=== PATIENT | male | born 1980 | race Two or more races ===

== ENCOUNTER 2021-05-27 23:16 | Emergency (ER) | payer OTHER, SELFPAY ==
--- NOTE | ~2021-05-27 | XR_ITS ---
EXAMINATION: XR LEFT HAND: 3 VIEWS CLINICAL INFORMATION: Laceration. Question of fracture. COMPARISON: None TECHNIQUE: PA, oblique and lateral views XR/XR hand wrist LT FINDINGS/IMPRESSION: Partial amputation of the soft tissues distal to the third distal phalangeal tuft. No fractures. No dislocation. No radiopaque foreign body.
[2021-05-27 23:22] VITALS: BP 148/102; PULSE 87; RESP 15; TEMP 36.7; O2SAT 97; BMI 36.0
--- NOTE | 2021-05-28 00:59 | ED_ITS ---
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 Patient states paper was was like cardboard like material. Patient states feels numb but have complete range of motion of finger. Patient denies any squirting bleeding once laceration occurred. Denies any other trauma. Patient unaware on last received Tdap Related Data Previous Rx's Medication Instructions Recorded cephalexin 500 mg capsule 500 mg PO QID #28 cap 05/28/21 naproxen 500 mg tablet 500 mg PO BID PRN #20 tab 05/28/21 Allergies Allergy/AdvReac Type Severity Reaction Status Date / Time No Known Allergies Allergy Unverified 05/01/20 16:46 [facility] Past Medical History Medical History (Updated 05/28/21 @ 01:44 by DENI Alexander) Diabetes Social History Social History Advance Directives: No Physical Exam Vital Signs: Vital Signs: Last Vital Signs Temp 98.0 F 05/27/21 23:22 Pulse 87 05/27/21 23:22 Resp 15 05/27/21 23:22 BP 148/102 H 05/27/21 23:22 Pulse Ox 97 05/27/21 23:22 Body Mass Index 36.0 Const: General: cooperative, healthy appearing, comfortable, no acute distress, well developed, alert, awake and Physically active Orie ntation/consciousness: patient oriented x3 HENMT: Head: Yes normal to inspection, Yes No palpable skull fracture present, Yes normocephalic and Yes atraumatic Eyes: General: appearance normal, both eyes and all related structures Neck: Neck: Yes normal visual inspection, Yes full ROM, Yes no lymphadenopathy, Yes no meningeal signs, Yes trachea midline, Yes supple and No tender Chest: Chest palpation & inspection: normal inspection of the chest and normal palpation of entire chest wall Resp: Effort & Inspection: normal respiratory effort and able to speak in complete sentences Auscultation: clear to auscultation bilaterally Cardio: Jugular venous distension: no JVD Heart sounds: S1 normal heart sound present and S2 normal heart sound present GI: Inspection: Yes normal to inspection and No abdominal wall ecchymosis Palpation (GI): Soft to palpation, not firm, nontender, no guarding and not rigid : General: No CVA tenderness and Yes no CVA tenderness Back/Spine/Pelvis: Back: no CVA tenderness, No CVA tenderness and No back tenderness Skin: General skin exam: no rashes or lesions noted and elasticity normal Neuro: General: patient oriented x3, gait normal, no meningeal signs and CN's II-XI intact bilaterally Cranial nerves: Yes CN's II-XII intact bilaterally Extrem: General: Yes normal to inspection and Yes full ROM Hand/finger images: 1. Very superficial laceration. Negative for active bleeding. Capillary refill is intact. Patient has complete range of motion of finger. The hand negative for signs of trauma. Vascular, neuro, motor exam intact. Psych: Appearance: grossly normal, well kempt and not disheveled Course Course Course Narrative: Laceration repair, x-ray, and Tdap Reevaluation(s) Reevaluation #1: Wound was cleaned with sterile saline and Betadine iodine. Wound was repaired with skin adhesive Dermabond. X-ray negative for fracture. Due to history of diabetes patient will be discharged with antibiotics to prevent infection Time: 02:10 MDM - Wound/Laceration MDM Narrative Medical decision making narrative: Finger laceration Discharge Plan Discharge Clinical Impression: Laceration Patient Disposition: Home, Self-Care Instructions: Laceration (ED), Skin Adhesive Care (ED) Additional Instructions: X-ray came back negative for fracture. Due to dirty cut you will be discharged with antibiotics to prevent infection return to the ED for any redness, pus discharge, foul odor, fever, chills, swelling, inability to move, or any other concerning symptoms. Please follow-up primary care provider Prescriptions: New cephalexin 500 mg capsule 500 mg PO QID Qty: 28 RF: 0 naproxen 500 mg tablet 500 mg PO BID PRN (Reason: pain) Qty: 20 RF: 0 Referrals: [facility] [Provider Group] - 2 days (Left middle finger laceration at work) Stand Alone Forms: Work/School Release Discharge Date/Time: 05/28/21 01:58 Print Language: Malagasy
[2021-05-28] MEDS: Ibuprofen 800 MG TABLET PO (01:03)
[2021-05-28] MEDS: Diphth,Pertus(ACell),Tet Adult 0.5 ML SYRINGE IM (01:04)
== END 2021-05-28 01:58 | disposition home or self-care (01) ==
PROVIDERS: Emergency Provider Emergency Medicine; PCP Internal Medicine
DX: S61.213A Laceration without foreign body of left middle finger without damage to nail, initial encounter (principal); E11.9 Type 2 diabetes mellitus without complications; W31.89XA Contact with other specified machinery, initial encounter; Y93.9 Activity, unspecified; Y92.89 Other specified places as the place of occurrence of the external cause; Y99.0 Civilian activity done for income or pay
CPT/HCPCS: 12001; 73110; 73130; 90471; 90715; 99283; 99284

== ENCOUNTER → 2021-05-28 11:07 | Outpatient (BNVA) | payer OTHER, SELFPAY | PROVIDERS: PCP Internal Medicine; Visit Provider Internal Medicine | DX: S61.213A Laceration without foreign body of left middle finger without damage to nail, initial encounter (principal); W31.9XXA Contact with unspecified machinery, initial encounter | CPT/HCPCS: 99203 ==

== ENCOUNTER → 2021-06-01 12:47 | Outpatient (BNVA) | payer OTHER, SELFPAY | PROVIDERS: PCP Internal Medicine; Visit Provider Internal Medicine | DX: S61.213A Laceration without foreign body of left middle finger without damage to nail, initial encounter (principal); S64.493A Injury of digital nerve of left middle finger, initial encounter; W45.8XXA Other foreign body or object entering through skin, initial encounter | CPT/HCPCS: 99213 ==

== ENCOUNTER → 2021-06-05 10:41 | Outpatient (BNVA) | payer OTHER, SELFPAY | PROVIDERS: PCP Internal Medicine; Visit Provider Internal Medicine | DX: S61.213A Laceration without foreign body of left middle finger without damage to nail, initial encounter (principal); X58.XXXA Exposure to other specified factors, initial encounter; S64.493A Injury of digital nerve of left middle finger, initial encounter | CPT/HCPCS: 99213 ==

== ENCOUNTER 2022-05-15 10:37 | Emergency (ER) | payer OTHER, SELFPAY ==
[2022-05-15 10:42] VITALS: BP 164/88; PULSE 83; RESP 18; TEMP 36.6; O2SAT 99; BMI 36.8
--- OUTSIDE RECORDS SUMMARY | 2022-05-15 11:38 | XMS_ITS | Continuity of Care Document ---
:1980 Author Organization [facility] Adult Address [address] [place] [address]- Care Team Providers Name Role Phone Tavo Mackey MD Primary Care Physician [place] [facility] [place]/21 - 11/25/21 [facility] Adult [address] [place] [address]- Allergies, Adverse Reactions, Alerts No Known Allergies Immunizations Given and Recorded Vaccine Date Status Refusal Reason SARS-CoV-2 (COVID-19) mRNA-1273 vaccine 07/14/21 Recorded SARS-CoV-2 (COVID-19) mRNA-1273 vaccine 05/11/21 Recorded tetanus/diphtheria/pertussis, acel(Tdap) 05/28/21 Recorde d influenza virus vaccine, inactivated 05/11/21 Recorded influenza virus vaccine, inactivated 06/23/17 Given influenza virus vaccine, inactivated 06/03/16 Given influenza virus vaccine, inactivated 05/23/15 Given influenza virus vaccine, inactivated 06/11/14 Given influenza virus vaccine, inactivated 11/02/13 Given Tet/Diphth/Acel, Pertussis (oldterm) 12/15/11 Given Pneumococcal Vacc (oldterm) 12/15/11 Given Medications Aspirin Tablet 81 mg, By Mouth, Daily, Refills 0, Maintenance, 11/14/20 21:08:00 EDT, Partial fill upon patient request if the prescription is for a schedule II opioid drug. Start Date: 11/14/20 Status: Orderedatorvastatin 40 mg oral tablet 1 tablet, By Mouth, Daily, # 90 tablet, 1 Refills, Maintenance, 08/18/21 9:40:00 EST, [facility] #[id number], 170, cm, 08/18/21 9:25:00 EST, Height, 104, kg, 06/17/21 8:07:00 EDT, Dry Weight Start Date: 08/18/21 Status: OrderedFreestyle 2 Kay 14 sensor Freestyle 2 Kay 14 sensor, See Instructions, # 2 each, Refills 11, Tot. Refills 11, Maintenance, DM2 E11.9 change every 14 days, 1 hour warm up, 08/18/21 9:39:00 EST, Compound, 170, cm, 08/18/21 9:25:00 EST, Height, 104, kg, 06/17/21 8:07:00 EDT, D... Start Date: 08/18/21 Status: OrderedFreestyle kay 2 reader Freestyle kay 2 reader, See Instructions, # 1 each, Refills 11, Tot. Refills 11, Maintenance, DM2 E11.9, 05/26/21 9:10:00 EDT, Compound, 170, cm, 05/18/21 9:13:00 EDT, Height, 104.5, kg, 11/14/20 21:03:00 EDT, Dry Weight Start Date: 05/26/21 Status: OrderedLantus Solostar Pen 100 units/mL subcutaneous solution = 100 units, Subcutaneous Injection, Daily, # 90 mL, 11 Refills, Soft Stop, 11/17/21 9:18:00 EDT, [facility], 170, cm, 11/17/21 8:51:00 EDT, Height, 104, kg, 06/17/21 8:07:00 EDT, Dry Weight Start Date: 11/17/21 Status: Orderedlisinopril 10 mg oral tablet 1, tablet, By Mouth, Daily, # 90 tablet, Refills 1, Tot. Refills 1, Maintenance, 08/18/21 9:40:00 EST, Route to Pharmacy Electronically, [facility] #[id number], 170, cm, 08/18/21 9:25:00 EST, Height, 104, kg, 06/17/21 8:07:00 EDT, Dry Weight Start Date: 08/18/21 Status: OrderedPen [place], 31 G x 8 mm BD Ultra Fine III See Instructions, # 4 Unknown, Refills 6, Tot. Refills 6, Maintenance, DM2, 09/30/21 11:27:00 EST, Supply, 170, cm, 08/18/21 9:25:00 EST, Height, 104, kg, 06/17/21 8:07:00 EDT, Dry Weight Start Date: 09/30/21 Status: OrderedSemglee (Prefilled Pen) 100 units/mL subcutaneous solution = 100 units, Subcutaneous Infusion, Daily, # 15 mL, 3 Refills, Maintenance, 11/20/21 14:34:00 EDT, [facility], Partial fill upon patient request if the prescription is for a scheduleII opioid drug., 170, cm, 11/17/21 8:51:00 EDT, H... Start Date: 11/20/21 Stop Date: 11/15/22 Status: Ordered Problem List Condition Effective Dates Status Health Status Informant Anger(Confirmed) Active Obesity (BMI 35.0-39.9 without Active comorbidity)(Confirmed) CKD (chronic kidney disease) stage 1, Active GFR 90 ml/min or greater(Confirmed) Pilonidal cyst(Confirmed) Active Current use of insulin(Confirmed) Active Hypercholesterolemia(Confirmed) Active Obese class II(Confirmed) Active Tobacco abuse(Confirmed) Active Type 2 diabetes with stage 1 chronic Active kidney disease GFR>90(Confirmed) Social History Social History Type Response Smoking Status Former smoker, quit more madiha n 30 days ago entered on: 06/09/21 Sex
--- OUTSIDE RECORDS SUMMARY | 2022-05-15 11:38 | XMS_ITS | Continuity of Care Document ---
:1980 Author Organization [facility] Adult Address [address] [place] [address]- Care Team Providers Name Role Phone Tavo Mackey MD Primary Care Physician [place] [facility] [place] [facility] [address] [place], [place] [address] Allergies, Adverse Reactions, Alerts Substance Reaction Severity Status NKA Active Immunizations Given and Recorded Vaccine Date Status Refusal Reason tetanus/diphtheria/pertussis, acel(Tdap) 05/28/21 Recorde d influenza virus vaccine, inactivated 05/11/21 Recorded influenza virus vaccine, inactivated 06/23/17 Given influenza virus vaccine, inactivated 06/03/16 Given influenza virus vaccine, inactivated 05/23/15 Given influenza virus vaccine, inactivated 06/11/14 Given influenza virus vaccine, inactivated 11/02/13 Given SARS-CoV-2 (COVID-19) mRNA-1273 vaccine 05/11/21 Recorded Tet/Diphth/Acel, Pertussis (oldterm) 12/15/11 Given Pneumococcal Vacc (oldterm) 12/15/11 Given Medications Amoxicillin 125, By Mouth, Every 12 hours, Maintenance, Pt states will start today after surgery, 06/17/21 8:44:00 EDT Start Date: 06/17/21 Status: OrderedAspirin Tablet 81 mg, By Mouth, Daily, Refills 0, Maintenance, 11/14/20 21:08:00 EDT, Partial fill upon patient request if the prescription is for a schedule II opioid drug. Start Date: 11/14/20 Status: Orderedatorvastatin 40 mg oral tablet 1 tablet, By Mouth, Daily, # 90 tablet, 0 Refills, Maintenance, 05/11/21 12:02:00 EDT, [facility], 170, cm, 01/26/21 8:52:00 EDT, Height, 104.5, kg, 11/14/20 21:03:00 EDT, Dry Weight Start Date: 05/11/21 Status: OrderedBactrim SS Tablet 1, tablet, By Mouth, 2 times a day, Maintenance, Pt states will start today . drink plenty of fluids, 06/17/21 8:47:00 EDT Start Date: 06/17/21 Status: OrderedFreestyle Kay 14 sensor Freestyle Kay 14 sensor, See Instructions, # 2 each, Refills 11, Tot. Refills 11, Maintenance, DM2E11.9 change every 14 days, 1 hour warm up, 11/24/20 7:52:00 EDT, Compound, 170, cm, 11/14/20 21:03:00 EDT, Height, 104.5, kg, 11/14/20 21:03:00 EDT,... Start Date: 11/24/20 Status: OrderedFreestyle kay 2 reader Freestyle kay 2 reader, See Instructions, # 1 each, Refills 11, Tot. Refills 11, Maintenance, DM2 E11.9, 05/26/21 9:10:00 EDT, Compound, 170, cm, 05/18/21 9:13:00 EDT, Height, 104.5, kg, 11/14/20 21:03:00 EDT, Dry Weight Start Date: 05/26/21 Status: OrderedLantus Solostar Pen 100 units/mL subcutaneous solution = 100 units, Subcutaneous Injection, Daily, # 90 mL, 11 Refills, Soft Stop, 05/18/21 9:33:00 EDT, [facility], 170, cm, 05/18/21 9:13:00 EDT, Height, 104.5, kg, 11/14/20 21:03:00 EDT,Dry Weight Start Date: 05/18/21 Status: Orderedlisinopril 10 mg oral tablet 1, tablet, By Mouth, Daily, # 90 tablet, Refills 0, Tot. Refills 0, Maintenance, 05/11/21 12:02:00 EDT, Route to Pharmacy Electronically, [facility], 170, cm, 01/26/21 8:52:00 EDT, Height, 104.5, kg, 11/14/20 21:03:00 EDT, Dry Weight Start Date: 05/11/21 Status: OrderedoxyCODONE 5 mg oral tablet 5 mg, 1, tablet, By Mouth, Every 4 hours, PRN, Refills 0, Tot. Refills 0, Maintenance, for pain, 06/17/21 10:01:00 EDT, Partial fill upon patient request if the prescription is for a schedule II opioiddrug. Start Date: 06/17/21 Status: OrderedPen [place], 31 G x 8 mm BD Ultra Fine III See Instructions, # 4 Unknown, Refills 5, Tot. Refills 5, Maintenance, DM2, 04/16/20 16:10:00 EDT, Supply, 168, cm, 03/21/20 7:01:00 EDT, Height, 104.8, kg, 03/18/20 22:56:00 EDT, Dry Weight Start Date: 04/16/20 Status: Ordered Problem List Condition Effective Dates Status Health Status Informant Anger(Confirmed) Active CKD (chronic kidney disease) stage 1, Active [...]
--- OUTSIDE RECORDS SUMMARY | 2022-05-15 11:38 | XMS_ITS | Continuity of Care Document ---
:1980 Author Organization [facility] Adult Address [address] [place] [address]- Care Team Providers Name Role Phone Tavo Mackey MD Primary Care Physician [place] [facility] [place] 06[place]21 [facility] [address] [place] [address]- Allergies, Adverse Reactions, Alerts Substance Reaction Severity Status NKA Active Immunizations Given and Recorded Vaccine Date Status Refusal Reason influenza virus vaccine, inactivated 06/23/17 Given influenza [...] EDT, Dry Weight Start Date: 05/11/21 Status: OrderedFreestyle Kay 14 sensor Freestyle Kay [...] Refills, Soft Stop, 05/18/21 9:33:00 EDT, [facility], 170, cm, 05/18/21 9:13:00 EDT, Height, 104.5, kg, 11/14/20 21:03:00 EDT,Dry Weight Start Date: 05/18/21 Status: Orderedlisinopril 10 mg oral tablet 1, tablet, By Mouth, Daily, # 90 tablet, Refills 0, Tot. Refills 0, Maintenance, 05/11/21 12:02:00 EDT, Route to Pharmacy Electronically, [facility], 170, cm, 01/26/21 8:52:00 EDT, Height, 104.5, kg, 11/14/20 21:03:00 EDT, Dry Weight Start Date: 05/11/21 Status: OrderedoxyCODONE 5 mg oral tablet 5 mg, 1, tablet, By Mouth, Every 4 hours, PRN, Take with food. May cause constipation., Refills 0, Tot. Refills 0, Maintenance, as needed for pain, 06/08/21 9:22:00 EDT, Partial fill upon patient request if the prescription is for a schedule II opioid... Start Date: 06/08/21 Status: OrderedPen [place], 31 G x 8 mm BD Ultra [...] Current use of insulin(Confirmed) Active Hypercholesterolemia(Confirmed) Active Tobacco abuse(Confirmed) Active Type 2 diabetes with stage 1 chronic Active kidney disease GFR>90(Confirmed) Social History Social History Type Response Smoking Status Former smoker, quit more madiha n 30 days ago entered on: 06/09/21 Sex
--- OUTSIDE RECORDS SUMMARY | 2022-05-15 11:38 | XMS_ITS | Continuity of Care Document ---
:1980 Author Organization [facility] Adult Address [address] [place] [address]- Care Team Providers Name Role Phone Tavo Mackey MD Primary Care Phys[place] [facility] [place]20 [facility] [address] [place] [address] [facility] Allergies, Adverse Reactions, Alerts Substance Reaction Severity Status NKA Active Immunizations Given and Recorded Vaccine Date Status Refusal Reason influenza virus vaccine, inactivated 06/23/17 Given influenza virus vaccine, inactivated 06/03/16 Given influenza virus vaccine, inactivated 05/23/15 Given influenza virus vaccine, inactivated 06/11/14 Given influenza virus vaccine, inactivated 11/02/13 Given Tet/Diphth/Acel, Pertussis (oldterm) 12/15/11 Given Pneumococcal Vacc (oldterm) 12/15/11 Given Medications atorvastatin 40 mg oral tablet 1 tablet, By Mouth, Daily, # 30 tablet, 12 Refills, Maintenance, 03/21/20 7:17:00 EDT, [facility] #[id number], 168, cm, 03/21/20 7:01:00 EDT, Height, 104.8, kg, 03/18/20 22:56:00 EDT, Dry Weight Start Date: 03/21/20 Status: OrderedBydureon Pen 2 mg subcutaneous injection, extended release See Instructions, Subcutaneous Infusion, administer once a week for DM2 E11.9, # 4 each, 11 Refills,Maintenance, 04/16/20 16:09:00 EDT, [facility] #[id number], 168, cm, 03/21/20 7:01:00 EDT, Height, 104.8, kg, 03/18/20 22:56:00 EDT, Dry Weight Start Date: 04/16/20 Status: OrderedLantus Solostar Pen 100 units/mL subcutaneous solution See Instructions, # 90 mL, Refills 3 Tot. Refills 3, INJECT 85 UNITS UNDER THE SKIN DAILY, [facility] Start Date: 05/28/19 Status: Orderedlisinopril 10 mg oral tablet 1, tablet, By Mouth, Daily, # 90 tablet, Refills 4, Tot. Refills 4, Maintenance, 03/21/20 7:17:00 EDT, Route to Pharmacy Electronically, [facility] #[id number], 168, cm, 03/21/20 7:01:00 EDT, Height, 104.8, kg, 03/18/20 22:56:00 EDT, Dry Weight Start Date: 03/21/20 Status: OrderedPen [place], 31 G x 8 mm BD Ultra [...] GFR>90(Confirmed) Social History Social History Type Response Tobacco Use: 4 or less cigarettes(le ss than 1/4 pack)/day in last 30 days. Sex
--- OUTSIDE RECORDS SUMMARY | 2022-05-15 11:38 | XMS_ITS | Continuity of Care Document ---
:[address] [facility] Adult Address [address] [place] [address]- Care Team Providers Name Role Phone Tavo Mackey MD Primary Care Physician [place] [facility]/20/20 - 12/20/20 [facility] [address] [place], [place] [address] Allergies, Adverse Reactions, Alerts Substance [...] tablet, 12 Refills, Maintenance, 03/21/20 7:17:00 EDT, [facility] #[id number], 168, cm, 03/21/20 7:01:00 EDT, Height, 104.8, kg, 03/18/20 22:56:00 EDT, Dry Weight Start Date: 03/21/20 Status: OrderedBydureon Pen 2 mg subcutaneous injection, extended release See Instructions, Subcutaneous Infusion, administer once a week for DM2 E11.9, # 4 each, 11 Refills,Maintenance, 04/16/20 16:09:00 EDT, [facility] #[id number], 168, cm, 03/21/20 7:01:00 EDT, Height, 104.8, kg, 03/18/20 22:56:00 EDT, Dry Weight Start Date: 04/16/20 Status: OrderedFree Style 14 day reader Free Style 14 day reader, See Instructions, # 1 each, Refills 0, Tot. Refills 0, Maintenance, DM2 E11.9, 11/24/20 7:52:00 EDT, Compound, 170, cm, 11/14/20 21:03:00 EDT, Height, 104.5, kg, 11/14/20 21:03:00 EDT, Dry Weight Start Date: 11/24/20 Status: OrderedFreestyle Kay 14 sensor Freestyle Kay 14 sensor, See Instructions, # 2 each, Refills 11, Tot. Refills 11, Maintenance, DM2E11.9 change every 14 days, 1 hour warm up, 11/24/20 7:52:00 EDT, Compound, 170, cm, 11/14/20 21:03:00 EDT, Height, 104.5, kg, 11/14/20 21:03:00 EDT,... Start Date: 11/24/20 Status: OrderedLantus Solostar Pen 100 units/mL subcutaneous solution = 100 units, Subcutaneous Injection, Daily, # 12 mL, 11 Refills, Soft Stop, 12/16/20 8:15:00 EDT Start Date: 12/16/20 Status: Orderedlisinopril 10 mg oral tablet 1, tablet, By Mouth, Daily, # 90 tablet, Refills 4, Tot. Refills 4, Maintenance, 03/21/20 7:17:00 EDT, Route to Pharmacy Electronically, [facility] #[id number], 168, cm, 03/21/20 7:01:00 EDT, Height, 104.8, kg, 03/18/20 22:56:00 EDT, Dry Weight Start Date: 03/21/20 Status: OrderedPen [place], 31 G x 8 mm BD Ultra [...]
--- OUTSIDE RECORDS SUMMARY | 2022-05-15 11:38 | XMS_ITS | Continuity of Care Document ---
:1980 Author Organization [facility] Adult Address [address] [place] [address]- Care Team Providers Name Role Phone Tavo Mackey MD Primary Care Physician [place] [facility] [place]16[place]20 - 05/16/20 [facility] [address] [place] [id number] [facility] Allergies, Adverse Reactions, Alerts Substance Reaction Severity [...] tablet, 12 Refills, Maintenance, 03/21/20 7:17:00 EDT, [facility] #[id number], 168, cm, 03/21/20 7:01:00 EDT, Height, 104.8, kg, 03/18/20 22:56:00 EDT, Dry Weight Start Date: 03/21/20 Status: OrderedBydureon Pen 2 mg subcutaneous injection, extended release See Instructions, Subcutaneous Infusion, administer once a week for DM2 E11.9, # 4 each, 11 Refills,Maintenance, 04/16/20 16:09:00 EDT, [facility] #[id number], 168, cm, 03/21/20 7:01:00 EDT, Height, 104.8, [...] 03/21/20 7:17:00 EDT, Route to Pharmacy Electronically, [facility] #[id number], 168, cm, 03/21/20 7:01:00 EDT, Height, 104.8, kg, 03/18/20 22:56:00 EDT, Dry Weight Start Date: 03/21/20 Status: OrderedPen [place], 31 G x 8 [...]
--- OUTSIDE RECORDS SUMMARY | 2022-05-15 11:38 | XMS_ITS | Continuity of Care Document ---
:1980 Author Organization [facility] [place], [facility] Adult Address [address] [place] [address]- Care Team Providers Name Role Phone Tavo Mackey MD Primary Care Physician Encounter [facility] [place] Date(s): 11/22/19 - 11/29/19 [facility] [place] Adult [address] [place] [address]- [facility] Encounter Diagnosis Cough (Discharge Diagnosis) - 11/22/19 Attending Physician: Not on Staff, Attending MD Allergies, Adverse Reactions, Alerts Substance Reaction Severity Status NKA Active Immunizations Given and Recorded Vaccine Date Status Refusal Reason influenza virus vaccine, inactivated 06/23/17 Given influenza virus vaccine, inactivated 06/03/16 Given influenza virus vaccine, inactivated 05/23/15 Given influenza virus vaccine, inactivated 06/11/14 Given influenza virus vaccine, inactivated 11/02/13 Given Tet/Diphth/Acel, Pertussis (oldterm) 12/15/11 Given Pneumococcal Vacc (oldterm) 12/15/11 Given Medications Accu-Chek Compact Lancets See Instructions, # 200 each, Refills 11, Tot. Refills 11, Maintenance, dm2 E11.9 check blood sugar 4 times a day, 12/08/18 14:06:15 EDT, Compound Start Date: 12/08/18 Status: OrderedACCU-CHEK Smartview Test Strips See Instructions, # 200 each, Refills 11, Tot. Refills 11, Maintenance, dm2 E11.9 check blood sugar 4 times a day, 12/08/18 14:04:34 EDT, Compound Start Date: 12/08/18 Status: Orderedaspirin 81 mg oral tablet 1 tablet = 81 mg, By Mouth, Daily, # 30 tablet, 0 Refills, Maintenance, 01/21/14 15:06:30, Tablet Start Date: 01/21/14 Status: Orderedatorvastatin 40 mg oral tablet 1 tablet, By Mouth, Daily, # 30 tablet, 12 Refills, Maintenance, 09/26/19 13:25:00 EST, [facility], 170.18, cm, 08/06/19 10:01:00 EST, Height, 106, kg, 04/25/19 16:53:00 EDT, Dry Weight Start Date: 09/26/19 Status: OrderedColace Clear = 100 mg, By Mouth, 2 times a day, # 60 capsule, 6 Refills, Maintenance, 05/08/19 14:43:25 EDT Start Date: 05/08/19 Status: OrderedDM DM, See Instructions, # 1 each, Refills 0, Tot. Refills 0, Maintenance, Test blood sugar four times daily for IDDM E11.9, 10/08/16 12:28:38, Compound Start Date: 10/08/16 Status: OrderedFree Style 14 day reader Free Style 14 day reader, See Instructions, # 1 each, Refills 0, Tot. Refills 0, Maintenance, DM2 E11.9, 11/15/18 9:20:56 EDT, Compound Start Date: 11/15/18 Status: OrderedFreestyle Kay 14 sensor Freestyle Kay 14 sensor, See Instructions, # 2 each, Refills 12, Tot. Refills 12, Maintenance, DM2E11.9 change every 14 days, 1 hour warm up, 11/15/18 9:20:53 EDT, Compound Start Date: 11/15/18 Status: OrderedHumalog 100 u/ml subcutaneous injection See Instructions, To be used daily with VGO 40 70 units max daily dose, # 3 vials, 11 Refills, Maintenance, 11/15/18 9:19:15 EDT Start Date: 11/15/18 Status: OrderedLantus Solostar Pen 100 units/mL subcutaneous solution See Instructions, # 90 mL, Refills 3 Tot. Refills 3, INJECT 85 UNITS UNDER THE SKIN DAILY, [facility] Start Date: 05/28/19 Status: Orderedlisinopril 10 mg oral tablet 1, tablet, By Mouth, Daily, # 90 tablet, Refills 4, Tot. Refills 0, Maintenance, 09/26/19 13:25:00 EST, Route to Pharmacy Electronically, [facility], 170.18, cm, 08/06/19 10:01:00 EST, Height, 106, kg, 04/25/19 16:53:00 EDT, Dry Weight Start Date: 09/26/19 Status: OrderedNuLYTELY with Flavor Packs oral powder for reconstitution 240 mL, By Mouth, Every 10 minutes, # 1 each, 0 Refills, Maintenance, 05/09/19 11:42:00 EDT, REC Powder, 240 mL By Mouth Every 10 minutes Start Date: 05/09/19 Status: OrderedOne Touch Fine Point Lancets See Instructions, # 200 each, Refills 5, Tot. Refills 5, Maintenance, use as directed for Type 1 Diabetes Mellitus, 01/05/18 13:12:14 EDT, Compound Start Date: 01/05/18 Stop Date: 07/04/18 Status: OrderedOne Touch Ultra 2 Glucose Meter See Instructions, # 1 each, Refills 0, Tot. Refills 0, Maintenance, TEST Blood sugar 3-4 times a dayDX E11.9 IDDMII, 11/21/18 11:29:15 EDT, Compound Start Date: 11/21/18 Status: OrderedOne Touch Ultra Test Strips See Instructions, # 200 each, Refills 11, Tot. Refills 11, Maintenance, TEST BS 3 times a day DX E11.9 IDDMII, 11/17/18 10:47:54 EDT, Compound Start Date: 11/17/18 Status: OrderedOzempic (0.25 mg or 0.5 mg dose) 2 mg/1.5 mL subcutaneous solution = 0.5 mg, Subcutaneous Infusion, Every Tuesday, start december 27 (after sample pen) start at 0.5mg weekly, once a week every TUE, # 1.5 mL, 11 Refills, Maintenance, 11/15/18 9:16:47 EDT Start Date: 11/15/18 Status: OrderedPen [place], 31 G x 5 mm BD Ultra Fine III See Instructions, # 200 each, Refills 11, Tot. Refills 11, Maintenance, dm2 E11.9 USE DIRECTED WITHinsulin pen, 11/15/18 13:50:56 EDT, REFAXED, Compound Start Date: 11/15/18 Status: OrderedV-GO 40 V-GO 40, See Instructions, # 30 each, Refills 11, Tot. Refills 11, Maintenance, V-GO delivery 40 VGOpharmacy contact [phone] to be used daily with humalog, 11/15/18 9:19:17 EDT, Compound Start Date: 11/15/18 Status: Ordered Problem List Condition Effective Dates Status Health Status Informant Anger(Confirmed) Active CKD (chronic kidney disease) stage 1, Active GFR 90 ml/min or greater(Confirmed) Pilonidal cyst(Confirmed) Active Current use of insulin(Confirmed) Active History of tobacco abuse(Confirmed) Active Hypercholesterolemia(Confirmed) Active Type 2 diabetes with stage 1 chronic Active kidney disease GFR>90(Confirmed) Diagnosis Diagnosis Type Effective Dates Health Status Clinical Serv ice Informant Cough Discharge 11/22/19 Diagnosis Social History Social History Type Response Tobacco Use: 4 or less cigarettes(le ss than 1/4 pack)/day in last 30 days. Sex
--- OUTSIDE RECORDS SUMMARY | 2022-05-15 11:39 | XMS_ITS | Continuity of Care Document ---
:1980 Author Organization [facility] Urgent [facility] pt Address [address] [place] [address]- Care Team Providers Name Role Phone Tavo Mackey MD Primary Care Physician Encounter [facility] [place] Date(s): 01/02/22 - 01/09/22 [facility] [address] [place] [address]- Encounter Diagnosis COVID-19 (Discharge Diagnosis) - 01/02/22 Attending Physician: Not on Staff, Attending MD Referring Physician: Tavo Mackey MD Allergies, Adverse Reactions, Alerts No Known Allergies [...] Daily, # 90 tablet, 0 Refills, Maintenance, 12/02/21 13:45:00 EDT, [facility], 170, cm, 11/17/21 8:51:00 EDT, Height, 104, kg, 06/17/21 8:07:00 EDT, Dry Weight Start Date: 12/02/21 Status: OrderedFreestyle 2 Kay 14 sensor Freestyle [...] tablet, Refills 0, Tot. Refills 0, Maintenance, 12/02/21 13:45:00 EDT, Route to Pharmacy Electronically, [facility], 170, cm, 11/17/21 8:51:00 EDT, Height, 104, kg, 06/17/21 8:07:00 EDT, Dry Weight Start Date: 12/02/21 Status: OrderedPaxlovid 150 mg-100 mg oral tablet See Instructions, 300 mg nirmatrelvir (two 150 mg tablets) with 100 mg ritonavir (1 tablet). All 3 tablets taken together twice daily for 5 days, with or without food, # 30 tablet, 0 Refills, Maintenance, 01/02/22 9:56:00 EDT, [facility] Start Date: 01/02/22 Status: OrderedPen [place], 31 G x 8 mm BD Ultra Fine III See Instructions, # 4 Unknown, Refills 6, Tot. Refills 6, Maintenance, DM2, 09/30/21 11:27:00 EST, Supply, 170, cm, 08/18/21 9:25:00 EST, Height, 104, kg, 06/17/21 8:07:00 EDT, Dry Weight Start Date: 09/30/21 Status: OrderedProAir HFA 90 mcg/inh inhalation aerosol 2 puffs, Inhalation, 4 times a day, PRN Wheezing/Shortness of Breath, # 18 Gm, 0 Refills, Maintenance, 01/02/22 9:58:00 EDT, [facility] #[id number], Partial fill upon patient request if the prescription is for a schedule II opioid drug., 2 puffs... Start Date: 01/02/22 Status: OrderedSemglee (Prefilled Pen) 100 units/mL subcutaneous solution = 100 units, Subcutaneous Injection, Daily, # 90 mL, 1 Refills, Maintenance, 12/02/21 13:45:00 EDT, [facility], 170, cm, 11/17/21 8:51:00 EDT, Height, 104, kg, 06/17/21 8:07:00 EDT, Dry Weight Start Date: 12/02/21 Stop Date: 05/31/22 Status: Ordered Problem List Condition Effective Dates [...] Dates Health Status Clinical Serv ice Informant COVID-19 Discharge 01/02/22 Diagnosis Social History Social History Type Response Smoking Status Former smoker, quit more madiha n 30 days ago entered on: 06/09/21 Sex
--- OUTSIDE RECORDS SUMMARY | 2022-05-15 11:39 | XMS_ITS | Continuity of Care Document ---
:1980 Author Organization [facility] Address [address] [place] [address]- Care Team Providers Name Role Phone Tavo Mackey MD Primary Care Physician Encounter [facility] [id number] Date(s): 11/04/21 - 12/04/[address] [address] Attending Physician: AdmTara garnett Admitting Physician: AdmtrTara Referring Physician: Admtr, Ar8 Allergies, Adverse Reactions, Alerts No Known Allergies [...] EDT, Dry Weight Start Date: 12/02/21 Status: OrderedPen [place], 31 G x 8 mm BD Ultra [...]
--- OUTSIDE RECORDS SUMMARY | 2022-05-15 11:39 | XMS_ITS | Continuity of Care Document ---
:1980 Author Organization [facility] Adult Address [address] [place] [address]- Care Team Providers Name Role Phone Tavo Mackey MD Primary Care Physician [place] [facility] [place]20 - 05/02/20 [facility] [address] [place] [address]- [facility] Allergies, Adverse Reactions, Alerts Substance [...] tablet, 12 Refills, Maintenance, 03/21/20 7:17:00 EDT, [facility] #[id number], 168, cm, 03/21/20 7:01:00 EDT, Height, 104.8, kg, 03/18/20 22:56:00 EDT, Dry Weight Start Date: 03/21/20 Status: OrderedBydureon Pen 2 mg subcutaneous injection, extended release See Instructions, Subcutaneous Infusion, administer once a week for DM2 E11.9, # 4 each, 11 Refills,Maintenance, 04/16/20 16:09:00 EDT, [id number], 168, cm, 03/21/20 7:01:00 EDT, Height, 104.8, [...] 03/21/20 7:17:00 EDT, Route to Pharmacy Electronically, [facility] #[id number], 168, cm, 03/21/20 7:01:00 EDT, Height, 104.8, kg, 03/18/20 22:56:00 EDT, Dry Weight Start Date: 03/21/20 Status: OrderedPen [place], 31 G x 8 mm BD Ultra [...]
--- OUTSIDE RECORDS SUMMARY | 2022-05-15 11:39 | XMS_ITS | Continuity of Care Document ---
:1980 Author Organization [facility] Adult Address [address] [place] [address]- Care Team Providers Name Role Phone Tavo Mackey MD Primary Care Physician Encounter [facility] [place] Date(s): 12/09/20 - 01/08/21 [facility] [address], [place] [address] Allergies, Adverse Reactions, Alerts Substance [...] tablet, 12 Refills, Maintenance, 03/21/20 7:17:00 EDT, [email or web address] #[id number], 168, cm, 03/21/20 7:01:00 EDT, Height, 104.8, kg, 03/18/20 22:56:00 EDT, Dry Weight Start Date: 03/21/20 Status: OrderedBydureon Pen 2 mg subcutaneous injection, extended release See Instructions, Subcutaneous Infusion, administer once a week for DM2 E11.9, # 4 each, 11 Refills,Maintenance, 04/16/20 16:09:00 EDT, [facility] #[id number], 168, cm, 03/21/20 7:01:00 EDT, Height, 104.8, [...] 03/21/20 7:17:00 EDT, Route to Pharmacy Electronically, [facility] #[id number], 168, cm, 03/21/20 7:01:00 EDT, Height, 104.8, kg, 03/18/20 22:56:00 EDT, Dry Weight Start Date: 03/21/20 Status: OrderedPen [place], 31 G x 8 mm BD Ultra [...]
--- OUTSIDE RECORDS SUMMARY | 2022-05-15 11:39 | XMS_ITS | Continuity of Care Document ---
:1980 Author Organization [facility] Adult Address [address] [place] [address]- Care Team Providers Name Role Phone Tavo Mackey MD Primary Care Physician [place] [facility] [place] 03/21/20 - 05/22/20 [facility] [address] [place] [address] [facility] Attending Physician: Bree Walters NP Referring Physician: Tavo Mackey MD Allergies, Adverse Reactions, Alerts Substance Reaction [...] tablet, 12 Refills, Maintenance, 03/21/20 7:17:00 EDT, [facility] #[id number], 168, cm, 03/21/20 7:01:00 EDT, Height, 104.8, kg, 03/18/20 22:56:00 EDT, Dry Weight Start Date: 03/21/20 Status: OrderedBydureon Pen 2 mg subcutaneous injection, extended release See Instructions, Subcutaneous Infusion, administer once a week for DM2 E11.9, # 4 each, 11 Refills,Maintenance, 04/16/20 16:09:00 EDT, [facility] #[id number], 168, cm, 03/21/20 7:01:00 EDT, Height, 104.8, [...] 03/21/20 7:17:00 EDT, Route to Pharmacy Electronically, [facility] #[id number], 168, cm, 03/21/20 7:01:00 EDT, Height, 104.8, kg, 03/18/20 22:56:00 EDT, Dry Weight Start Date: 03/21/20 Status: OrderedPen [place], 31 G x 8 mm BD Ultra [...]
--- OUTSIDE RECORDS SUMMARY | 2022-05-15 11:39 | XMS_ITS | Continuity of Care Document ---
:1980 Author Organization [facility] Adult Address [address] [place] [address]- Care Team Providers Name Role Phone Tavo Mackey MD Primary Care Physician [place] [facility] [place] Date(s): 11/17/21 - 11/24/21 [facility] [address] [place] [address]- Attending Physician: Bree Walters NP Referring Physician: [...] tablet, 1 Refills, Maintenance, 08/18/21 9:40:00 EST, [facility] #[id number], 170, cm, 08/18/21 9:25:00 EST, Height, 104, [...] 08/18/21 9:40:00 EST, Route to Pharmacy Electronically, [facility] #[id number], 170, cm, 08/18/21 9:25:00 EST, Height, 104, kg, 06/17/21 8:07:00 EDT, Dry Weight Start Date: 08/18/21 Status: OrderedPen [place], 31 G x 8 mm BD Ultra [...] stage 1 chronic Active kidney disease GFR>90(Confirmed) Vital Signs Most recent to oldest [Reference Range]: 1 Height 170 cm (11/17/21 8:51 AM) Weight 108.8 kg (11/17/21 8:51 AM) Oxygen Saturation [94-100 %] 98 % (11/17/21 8:51 AM) Pulse Rate [55-90 bpm] 84 bpm (11/17/21 8:51 AM) Body Mass Index [18.5-24.99] 37.65 *>HHI* (11/17/21 8:51 AM) Blood Pressure [90-138/55-84 mm Hg] 114/72 mm Hg (11/17/21 8:51 AM) Respiratory Rate [16-30 br/min] 16 br/min (11/17/21 8:51 AM) Mode of Delivery (Oxygen) Room air (11/17/21 8:51 AM) Blood pressure sites Arm, right (11/17/21 8:51 AM) Weight Obtained Via Standing scale (11/17/21 8:51 AM) Social History Social History Type Response Smoking Status Former smoker, quit more madiha n 30 days ago entered on: 06/09/21 Sex
--- OUTSIDE RECORDS SUMMARY | 2022-05-15 11:39 | XMS_ITS | Continuity of Care Document ---
:1980 Author Organization [facility] Adult Address [address] [place] [address]- Care Team Providers Name Role Phone Key BANGURA, Tavo Maldonado Primary Care Physician [place] [facility] [place] - 12/21/19 [facility] [address] [place] [address]- [facility] Attending Physician: Mk Hinton MD Allergies, Adverse Reactions, Alerts Substance Reaction [...] 11/15/18 Status: OrderedFreestyle Kay 14 sensor Freestyle [place] 14 sensor, See Instructions, # 2 each, [...] 9:16:47 EDT Start Date: 11/15/18 Status: OrderedPen [place], 31 G x 5 mm BD Ultra Fine III See Instructions, # 200 each, Refills 11, Tot. Refills 11, Maintenance, dm2 E11.9 USE DIRECTED WITHinsulin pen, 11/15/18 13:50:56 EDT, REFAXED, Compound Start Date: 11/15/18 Status: OrderedV-GO 40 V-GO 40, See Instructions, # 30 each, Refills 11, Tot. Refills 11, Maintenance, V-GO delivery 40 VGOpharmacy contact [phone] to be used daily with humalog, 11/15/18 [...]
--- OUTSIDE RECORDS SUMMARY | 2022-05-15 11:39 | XMS_ITS | Continuity of Care Document ---
:1980 Author Organization [facility] Address [address] [place] [address]- Care Team Providers Name Role Phone Tavo Mackey MD Primary Care Physician En[place] [facility] [place] Date(s): 05/04/21 - 06/03/21 [facility] [address] [place], [place] [address] Allergies, Adverse Reactions, Alerts Substance [...] Refills, Soft Stop, 05/18/21 9:33:00 EDT, [facility], 170, cm, 05/18/21 9:13:00 EDT, Height, 104.5, kg, 11/14/20 21:03:00 EDT,Dry Weight Start Date: 05/18/21 Status: Orderedlisinopril 10 mg oral tablet 1, tablet, By Mouth, Daily, # 90 tablet, Refills 0, Tot. Refills 0, Maintenance, 05/11/21 12:02:00 EDT, Route to Pharmacy Electronically, [facility], 170, cm, 01/26/21 8:52:00 EDT, Height, 104.5, kg, 11/14/20 21:03:00 EDT, Dry Weight Start Date: 05/11/21 Status: OrderedPen [place], 31 G x 8 mm BD Ultra [...] History Social History Type Response Smoking Status Use: 4 or less cigarettes(le ss than 1/4 pack)/day in last 30 days; Former smoker, quit more than 30 days ago entered on: 05/18/21 Sex
--- OUTSIDE RECORDS SUMMARY | 2022-05-15 11:39 | XMS_ITS | Continuity of Care Document ---
:1980 Author Organization [facility] Adult Address [address] [place] [address]- Care Team Providers Name Role Phone Tavo Mackey MD Primary Care Physician Encounter [facility] Date(s): 09/26/20 - 10/26/20 [facility] [address] [place], [place] [address] Allergies, Adverse Reactions, Alerts Substance Reaction Severity [...] tablet, 12 Refills, Maintenance, 03/21/20 7:17:00 EDT, [facility] #[id number], 168, cm, 03/21/20 7:01:00 EDT, Height, 104.8, kg, 03/18/20 22:56:00 EDT, Dry Weight Start Date: 03/21/20 Status: OrderedBydureon Pen 2 mg subcutaneous injection, extended release See Instructions, Subcutaneous Infusion, administer once a week for DM2 E11.9, # 4 each, 11 Refills,Maintenance, 04/16/20 16:09:00 EDT, [facility] #[id number], 168, cm, 03/21/20 7:01:00 EDT, Height, 104.8, [...] 03/21/20 7:17:00 EDT, Route to Pharmacy Electronically, [facility] #[id number], 168, cm, 03/21/20 7:01:00 EDT, Height, 104.8, kg, 03/18/20 22:56:00 EDT, Dry Weight Start Date: 03/21/20 Status: OrderedPen [place], 31 G x 8 mm BD Ultra [...]
--- OUTSIDE RECORDS SUMMARY | 2022-05-15 11:39 | XMS_ITS | Continuity of Care Document ---
:1980 Author Organization [facility] Adult Address [address] [place] [address]- Care Team Providers Name Role Phone Tavo Mackey MD Primary Care Physician [place] [facility] [place]s): 04/09/22 - 04/16/22 [facility] Adult [address] [place] [address]- Attending Physician: Bree Walters NP Referring Physician: Tavo Mackey MD Allergies, Adverse Reactions, Alerts No Known Allergies Immunizations Given and Recorded Vaccine Date Status Refusal Reason Influenza Virus Vaccine (oldterm) 04/09/22 Recorded SARS-CoV-2 (COVID-19) mRNA-1273 vaccine 07/14/21 Recorded SARS-CoV-2 [...] EDT, Dry Weight Start Date: 05/26/21 Status: Orderedlisinopril 10 mg oral tablet 1, tablet, By Mouth, Daily, # 90 tablet, Refills 0, Tot. Refills 0, Maintenance, 12/02/21 13:45:00 EDT, Route to Pharmacy Electronically, [facility], 170, cm, 11/17/21 8:51:00 EDT, Height, 104, kg, 06/17/21 8:07:00 EDT, Dry Weight Start Date: 12/02/21 Status: OrderedPen [place], 31 G x 8 mm BD Ultra Fine III See Instructions, # 4 Unknown, Refills 6, Tot. Refills 6, Maintenance, DM2, 09/30/21 11:27:00 EST, Supply, 170, cm, 08/18/21 9:25:00 EST, Height, 104, kg, 06/17/21 8:07:00 EDT, Dry Weight Start Date: 09/30/21 Status: OrderedSemglee (Prefilled Pen) 100 units/mL subcutaneous solution = 100 units, Subcutaneous Injection, Daily, # 90 mL, 0 Refills, Maintenance, 04/02/22 9:42:00 EDT, [facility] #[id number], 170, cm, 03/25/22 14:59:00 EDT, Height, 104, kg, 06/17/21 8:07:00 EDT, Dry Weight Start Date: 04/02/22 Stop Date: 07/01/22 Status: Ordered Problem List Condition Effective Dates Status Health Status Informant Anger(Confirmed) Active Thyroid antibody positive(Confirmed) Active CKD (chronic kidney disease) stage 1, Active GFR 90 ml/min or greater(Confirmed) Pilonidal cyst(Confirmed) Active Current use of insulin(Confirmed) Active Hypercholesterolemia(Confirmed) Active Obese class II(Confirmed) Active History of tobacco use(Confirmed) Active Type 2 diabetes with stage 1 chronic Active kidney disease GFR>90(Confirmed) Vitamin D deficiency(Confirmed) Active Vital Signs Most recent to oldest [Reference Range]: 1 Height 170 cm (04/09/22 3:11 PM) Weight 108.8 kg (04/09/22 3:11 PM) Oxygen Saturation [94-100 %] 98 % (04/09/22 3:11 PM) Pulse Rate [55-90 bpm] 72 bpm (04/09/22 3:11 PM) Body Mass Index [18.5-24.99] 37.65 *>HHI* (04/09/22 3:11 PM) Blood Pressure [90-138/55-84 mm Hg] 120/74 mm Hg (04/09/22 3:11 PM) Respiratory Rate [16-30 br/min] 20 br/min (04/09/22 3:11 PM) Mode of Delivery (Oxygen) Room air (04/09/22 3:11 PM) Blood pressure sites Arm, right (04/09/22 3:11 PM) Weight Obtained Via Standing scale (04/09/22 3:11 PM) Social History Social History Type Response Smoking Status Former smoker, quit more madiha n 30 days ago entered on: 06/09/21 Sex Care Team PersonnelName: Tavo Mackey MD Address: [address] [place] [address] [place] [address]-
--- OUTSIDE RECORDS SUMMARY | 2022-05-15 11:39 | XMS_ITS | Continuity of Care Document ---
:1980 Author Organization [facility] Address [address] [place] [address]- Care Team Providers Name Role Phone Tavo Mackey MD Primary Care Physician [place] [facility] [place] Date(s): 03/24/20 - 04/23/20 [facility] [address] [place] [address] [facility] Allergies, Adverse Reactions, Alerts Substance Reaction Severity [...] tablet, 12 Refills, Maintenance, 03/21/20 7:17:00 EDT, [facility] #[id number], 168, cm, 03/21/20 7:01:00 EDT, Height, 104.8, kg, 03/18/20 22:56:00 EDT, Dry Weight Start Date: 03/21/20 Status: OrderedBydureon Pen 2 mg subcutaneous injection, extended release See Instructions, Subcutaneous Infusion, administer once a week for DM2 E11.9, # 4 each, 11 Refills,Maintenance, 04/16/20 16:09:00 EDT, [facility] #[id number], 168, cm, 03/21/20 7:01:00 EDT, Height, 104.8, [...] 03/21/20 7:17:00 EDT, Route to Pharmacy Electronically, [facility] #[id number], 168, cm, 03/21/20 7:01:00 EDT, Height, 104.8, kg, 03/18/20 22:56:00 EDT, Dry Weight Start Date: 03/21/20 Status: OrderedPen [place], 31 G x 8 mm BD Ultra [...]
--- OUTSIDE RECORDS SUMMARY | 2022-05-15 11:39 | XMS_ITS | Continuity of Care Document ---
:1980 Author Organization [facility] Adult Address [address] [place] [address]- Care Team Providers Name Role Phone Tavo Mackey MD Primary Care Physician En[place] [facility] [place](s): 12/03/20 - 01/02/21 [facility] [address] [place], [place] [address] Allergies, Adverse Reactions, Alerts Substance Reaction Severity [...] tablet, 12 Refills, Maintenance, 03/21/20 7:17:00 EDT, [facility] #[id number], 168, cm, 03/21/20 7:01:00 EDT, Height, 104.8, kg, 03/18/20 22:56:00 EDT, Dry Weight Start Date: 03/21/20 Status: OrderedBydureon Pen 2 mg subcutaneous injection, extended release See Instructions, Subcutaneous Infusion, administer once a week for DM2 E11.9, # 4 each, 11 Refills,Maintenance, 04/16/20 16:09:00 EDT, [facility] #[id number], 168, cm, 03/21/20 7:01:00 EDT, Height, 104.8, [...] 03/21/20 7:17:00 EDT, Route to Pharmacy Electronically, [facility] #[id number], 168, cm, 03/21/20 7:01:00 EDT, Height, 104.8, kg, 03/18/20 22:56:00 EDT, Dry Weight Start Date: 03/21/20 Status: OrderedPen [place], 31 G x 8 mm BD Ultra [...]
--- OUTSIDE RECORDS SUMMARY | 2022-05-15 11:39 | XMS_ITS | Continuity of Care Document ---
:1980 Author Organization [facility] Adult Address [address] [place] [address]- Care Team Providers Name Role Phone Tavo Mackey MD Primary Care Physician Encounter [facility] [place] Date(s): 11/22/19 - 12/02/19 [facility] Adult [address] [place] [address]- [facility] Attending Physician: Admtr, Ar8 Admitting Physician: Admtr, Ar8 Referring Physician: Admtr, Ar8 Allergies, Adverse Reactions, Alerts Substance Reaction Severity [...] 9:16:47 EDT Start Date: 11/15/18 Status: OrderedPen [place], 31 G x 5 mm BD Ultra Fine III See Instructions, # 200 each, Refills 11, Tot. Refills 11, Maintenance, dm2 E11.9 USE DIRECTED WITHinsulin pen, 11/15/18 13:50:56 EDT, REFAXED, Compound Start Date: 11/15/18 Status: OrderedV-GO 40 V-GO 40, See Instructions, # 30 each, Refills 11, Tot. Refills 11, Maintenance, V-GO delivery 40 VGOpharmacy contact [phone] to be used daily with humalog, 11/15/18 [...]
--- OUTSIDE RECORDS SUMMARY | 2022-05-15 11:39 | XMS_ITS | Continuity of Care Document ---
:1980 Author Organization [facility] Adult Address [address] [place] [address]- Care Team Providers Name Role Phone Tavo Mackey MD Primary Care Physician Encounter [facility] [place] Date(s): 04/03/21 - 05/03/21 [facility] Adult [address] [place] [address]- Attending Physician: Admtr, Ar8 Admitting Physician: Admtr, [...] tablet, By Mouth, Daily, # 30 tablet, 5 Refills, Maintenance, 04/04/21 6:42:00 EDT, [facility] #[id number], 170, cm, 01/26/21 8:52:00 EDT, Height, 104.5, kg, 11/14/20 21:03:00 EDT, Dry Weight Start Date: 04/04/21 Status: OrderedBydureon Pen 2 mg subcutaneous injection, extended release See Instructions, Subcutaneous Infusion, administer once a week for DM2 E11.9, # 4 each, 11 Refills,Maintenance, 04/16/20 16:09:00 EDT, [facility] #[id number], 168, cm, 03/21/20 7:01:00 EDT, Height, 104.8, [...] tablet, Refills 1, Tot. Refills 1, Maintenance, 04/04/21 6:42:00 EDT, Route to Pharmacy Electronically, [facility] #[id number], 170, cm, 01/26/21 8:52:00 EDT, Height, 104.5, kg, 11/14/20 21:03:00 EDT, Dry Weight Start Date: 04/04/21 Status: OrderedPen [place], 31 G x 8 mm BD Ultra [...]
--- OUTSIDE RECORDS SUMMARY | 2022-05-15 11:39 | XMS_ITS | Continuity of Care Document ---
:1980 Author Organization [facility] Adult Address [address] [place] [address]- Care Team Providers Name Role Phone Tavo Mackey MD Primary Care Physician [place] [facility] [place] Date(s): 11/21/20 - 12/21/20 [facility] Adult [address], [place] [address] Allergies, Adverse Reactions, Alerts Substance Reaction [...] tablet, 12 Refills, Maintenance, 03/21/20 7:17:00 EDT, [facility] #[id number], 168, cm, 03/21/20 7:01:00 EDT, Height, 104.8, kg, 03/18/20 22:56:00 EDT, Dry Weight Start Date: 03/21/20 Status: OrderedBydureon Pen 2 mg subcutaneous injection, extended release See Instructions, Subcutaneous Infusion, administer once a week for DM2 E11.9, # 4 each, 11 Refills,Maintenance, 04/16/20 16:09:00 EDT, [facility] #[id number], 168, cm, 03/21/20 7:01:00 EDT, Height, 104.8, [...] 03/21/20 7:17:00 EDT, Route to Pharmacy Electronically, [facility] #[id number], 168, cm, 03/21/20 7:01:00 EDT, Height, 104.8, kg, 03/18/20 22:56:00 EDT, Dry Weight Start Date: 03/21/20 Status: OrderedPen [place], 31 G x 8 mm BD Ultra [...]
--- OUTSIDE RECORDS SUMMARY | 2022-05-15 11:39 | XMS_ITS | Continuity of Care Document ---
:1980 Author Organization [facility] Adult Address [address] [place] [address]- Care Team Providers Name Role Phone Tavo Mackey MD Primary Care Physician [place] [facility] [place]14/22 - 05/14/22 [facility] Adult [address] [place], [place] [address] Allergies, Adverse Reactions, Alerts No Known Allergies [...] EDT, Dry Weight Start Date: 05/26/21 Status: OrderedJardiance 10 mg oral tablet 1 tablet = 10 mg, By Mouth, Daily in AM, # 30 tablet, 6 Refills, Maintenance, 04/23/22 14:31:00 EDT,Tablet, [facility] #[id number], Partial fill upon patient request if the prescription is for a schedule II opioid drug., 170, cm, 04/23/22 14:18:... Start Date: 04/23/22 Status: Orderedlisinopril 10 mg oral tablet 1, tablet, By Mouth, Daily, # 90 tablet, Refills 0, Tot. Refills 0, Maintenance, 12/02/21 13:45:00 EDT, Route to Pharmacy Electronically, [facility], 170, cm, 11/17/21 8:51:00 EDT, Height, 104, kg, 06/17/21 8:07:00 EDT, Dry Weight Start Date: 12/02/21 Status: OrderedPen [place], 31 G x 8 mm BD Ultra [...] mL, 0 Refills, Maintenance, 04/02/22 9:42:00 EDT, [facility] #[id number], 170, cm, 03/25/22 14:59:00 EDT, Height, 104, kg, 06/17/21 8:07:00 EDT, Dry Weight Start Date: 04/02/22 Stop Date: 07/01/22 Status: OrderedVitamin D3 50,000 intl units oral capsule 1 capsule = 1,250 mcg, By Mouth, Every week, with food, # 4 capsule, 0 Refills, Maintenance, 04/23/22 14:35:00 EDT, Capsule, [facility] #[id number], Partial fill upon patient request if the prescription is for a schedule II opioid drug., 170, cm,... Start Date: 04/23/22 Stop Date: 05/21/22 Status: Ordered Problem List Condition Confirmation Course Effective Status Health Informa nt Dates Status Anger Confirmed Active Thyroid antibody positive Confirmed Active CKD (chronic kidney Confirmed Active disease) stage 1, GFR 90 ml/min or greater Pilonidal cyst Confirmed Active Current use of insulin Confirmed Active Hypercholesterolemia Confirmed Active Obese class II Confirmed Active History of tobacco use Confirmed Active Type 2 diabetes with Confirmed Active stage 1 chronic kidney disease GFR>90 Vitamin D deficiency Confirmed Active Social History Social History Type Response Smoking Status Former smoker, quit more madiha n 30 days ago entered on: 06/09/21 Sex Patient Care team information PersonnelName: Key BANGURA, Tavo Maldonado Address: Address: [address] [place] [id number]
--- OUTSIDE RECORDS SUMMARY | 2022-05-15 11:39 | XMS_ITS | Continuity of Care Document ---
:1980 Author Organization [facility] Address [address] [place] [address]- Care Team Providers Name Role Phone Key BANGURA, Tavo Maldonado Primary Care Physician Encounter [facility] Date(s): 05/18/21 - 09/03/21 [facility] [address] [place] [address]- Attending Physician: Baljit Tsang MD Referring Physician: Bree Walters NP Allergies, Adverse Reactions, Alerts No Known Allergies [...] 90 tablet, 1 Refills, Maintenance, 08/18/21 9:40:00 [facility] #[id number], 170, cm, 08/18/21 9:25:00 EST, Height, 104, kg, 06/17/21 8:07:00 EDT, Dry Weight Start Date: 08/18/21 Status: OrderedBactrim SS Tablet 1, tablet, By Mouth, 2 times a day, Maintenance, Pt states will start today . drink plenty of fluids, 06/17/21 8:47:00 EDT Start Date: 06/17/21 Status: OrderedFreestyle 2 Kay 14 sensor Freestyle [...] 08/18/21 9:40:00 EST, Route to Pharmacy Electronically, [facility] #[id number], 170, cm, 08/18/21 9:25:00 EST, Height, 104, kg, 06/17/21 8:07:00 EDT, Dry Weight Start Date: 08/18/21 Status: OrderedoxyCODONE 5 mg oral tablet 5 mg, 1, tablet, By Mouth, Every 4 hours, PRN, Refills 0, Tot. Refills 0, Maintenance, for pain, 06/17/21 10:01:00 EDT, Partial fill upon patient request if the prescription is for a schedule II opioiddrug. Start Date: 06/17/21 Status: OrderedPen [place], 31 G x 8 mm BD Ultra [...]
--- OUTSIDE RECORDS SUMMARY | 2022-05-15 11:39 | XMS_ITS | Continuity of Care Document ---
:1980 Author Organization [facility] [place] Adult Address [address] [place] [address]- Care Team Providers Name Role Phone Tavo Mackey MD Primary Care Physician Encounter [facility] [place] Date(s): 09/28/21 - 10/28/21 [facility] [place] Adult [address] [place], [place] [address] Allergies, Adverse Reactions, Alerts No Known Allergies [...] tablet, 1 Refills, Maintenance, 08/18/21 9:40:00 EST, [id number], 170, cm, 08/18/21 9:25:00 EST, Height, 104, kg, 06/17/21 8:07:00 EDT, Dry Weight Start Date: 08/18/21 Status: Ordereddoxycycline hyclate 100 mg oral capsule 1 capsule = 100 mg, By Mouth, 2 times a day, for 7 days, # 14 capsule, 0 Refills, Acute 10/30/21 10:19:00 EDT, 10/23/21 10:19:00 EST, Capsule, [facility] #[id number], Partial fill upon patient request if the prescription is for a schedule II opio... Start Date: 10/23/21 Stop Date: 10/30/21 Status: OrderedFreestyle 2 Kay 14 sensor Freestyle [...] 08/18/21 9:40:00 EST, Route to Pharmacy Electronically, [facility] #[id number], 170, cm, 08/18/21 9:25:00 EST, Height, 104, kg, 06/17/21 8:07:00 EDT, Dry Weight Start Date: 08/18/21 Status: OrderedPen [place], 31 G x 8 mm BD Ultra Fine III See Instructions, # 4 Unknown, Refills 6, Tot. Refills 6, Maintenance, DM2, 09/30/21 11:27:00 EST, [facility], 170, cm, 08/18/21 9:25:00 EST, Height, 104, kg, 06/17/21 8:07:00 EDT, Dry Weight Start Date: 09/30/21 Status: OrderedTessalon Perles 100 mg oral capsule 1 capsule = 100 mg, By Mouth, 3 times a day, for 7 days, # 21 capsule, 0 Refills, Acute 10/30/21 10:18:00 EDT, 10/23/21 10:18:00 EST, Capsule, [facility] #[id number], Partial fill upon patient request if the prescription is for a schedule II opio... Start Date: 10/23/21 Stop Date: 10/30/21 Status: Ordered Problem List Condition Effective Dates [...]
--- OUTSIDE RECORDS SUMMARY | 2022-05-15 11:39 | XMS_ITS | Continuity of Care Document ---
:1980 Author Organization [facility] Adult Address [address] [place] [address]- Care Team Providers Name Role Phone Key BANGURA, Tavo Maldonado Primary Care Physician [place] [facility] [place] 04/23/22 - 04/30/22 [facility] Adult [address] [place] [address]- Attending Physician: Bree Walters NP Allergies, Adverse Reactions, [...] tablet, 6 Refills, Maintenance, 04/23/22 14:31:00 EDT,Tablet, [facility] #[id number], Partial fill upon patient request if the [...] Dry Weight Start Date: 12/02/21 Status: OrderedPen [place], 31 G x 8 mm BD Ultra [...] mL, 0 Refills, Maintenance, 04/02/22 9:42:00 EDT, [facility] #[id number], 170, cm, 03/25/22 14:59:00 EDT, Height, 104, kg, 06/17/21 8:07:00 EDT, Dry Weight Start Date: 04/02/22 Stop Date: 07/01/22 Status: OrderedVitamin D3 50,000 intl units oral capsule 1 capsule = 1,250 mcg, By Mouth, Every week, with food, # 4 capsule, 0 Refills, Maintenance, 04/23/22 14:35:00 EDT, Capsule, [facility] #[id number], Partial fill upon patient request if the prescription is for a schedule II opioid drug., 170, cm,... Start Date: 04/23/22 Stop Date: 05/21/22 Status: Ordered Problem List Condition Effective Dates [...] oldest [Reference Range]: 1 Height 170 cm (04/23/22 2:18 PM) Weight 109.3 kg (04/23/22 2:18 PM) Oxygen Saturation [94-100 %] 96 % (04/23/22 2:18 PM) Pulse Rate [55-90 bpm] 76 bpm (04/23/22 2:18 PM) Body Mass Index [18.5-24.99] 37.82 *>HHI* (04/23/22 2:18 PM) Blood Pressure [90-138/55-84 mm Hg] 136/86 mm Hg (04/23/22 2:18 PM) Mode of Delivery (Oxygen) Room air (04/23/22 2:18 PM) Blood pressure sites Arm, left (04/23/22 2:18 PM) Weight Obtained Via Standing scale (04/23/22 2:18 PM) Social History Social History Type Response Smoking Status Former smoker, quit more madiha n 30 days ago entered on: 06/09/21 Sex Care Team PersonnelName: Key BANGURA, Tavo Maldonado Address: [address] [place] [id number]
--- OUTSIDE RECORDS SUMMARY | 2022-05-15 11:39 | XMS_ITS | Continuity of Care Document ---
:1980 Author Organization [facility] Adult Address [address] [place] [address]- Care Team Providers Name Role Phone Tavo Mackey MD Primary Care Physician En[place] [facility] [place] Date(s): 12/02/21 - 01/01/22 [facility] Adult [address] [place], [place] [address] Allergies, Adverse Reactions, Alerts No Known Allergies Immunizations Given and Recorded Vaccine Date Status Refusal Reason SARS-CoV-2 (COVID-19) mRNA-1273 vaccine 07/14/21 Recorded SARS-CoV-2 (COVID-19) mRNA-127 vaccine 05/11/21 Recorded tetanus/diphtheria/pertussis, acel(Tdap) 05/28/21 Recorde [...] EDT, D... Start Date: 08/18/21 Status: OrderedFreestyle aky 2 reader Freestyle kay 2 reader, See [...] Dry Weight Start Date: 12/02/21 Status: OrderedPen [place], 31 G x 8 mm BD Ultra [...]
--- OUTSIDE RECORDS SUMMARY | 2022-05-15 11:39 | XMS_ITS | Continuity of Care Document ---
:1980 Author Organization [facility] [place] Adult Address [address] [place] [address]- Care Team Providers Name Role Phone Tavo Mackey MD Primary Care Physician Encounter [facility] [place] Date(s): 11/20/20 - 12/26/20 [facility] [place] [facility] [address] [place], [place] [address] Attending Physician: Tavo Mackey MD Allergies, Adverse Reactions, [...] tablet, 12 Refills, Maintenance, 03/21/20 7:17:00 EDT, [facility] #[id number], 168, cm, 03/21/20 7:01:00 EDT, Height, 104.8, kg, 03/18/20 22:56:00 EDT, Dry Weight Start Date: 03/21/20 Status: OrderedBydureon Pen 2 mg subcutaneous injection, extended release See Instructions, Subcutaneous Infusion, administer once a week for DM2 E11.9, # 4 each, 11 Refills,Maintenance, 04/16/20 16:09:00 EDT, [facility] #[id number], 168, cm, 03/21/20 7:01:00 EDT, Height, 104.8, [...] 03/21/20 7:17:00 EDT, Route to Pharmacy Electronically, [facility] #[id number], 168, cm, 03/21/20 7:01:00 EDT, Height, 104.8, kg, 03/18/20 22:56:00 EDT, Dry Weight Start Date: 03/21/20 Status: OrderedPen [place], 31 G x 8 mm BD Ultra [...]
--- OUTSIDE RECORDS SUMMARY | 2022-05-15 11:39 | XMS_ITS | Continuity of Care Document ---
:1980 Author Organization [facility] Adult Address [address] [place] [address]- Care Team Providers Name Role Phone Tavo Mackey MD Primary Care Physician Encounter [facility] [place] Date(s): 03/19/20 - 04/18/20 [facility] Adult [address] [place] [address]- [facility] Allergies, Adverse Reactions, Alerts Substance Reaction Severity [...] tablet, 12 Refills, Maintenance, 03/21/20 7:17:00 EDT, [facility] #[id number], 168, cm, 03/21/20 7:01:00 EDT, Height, 104.8, kg, 03/18/20 22:56:00 EDT, Dry Weight Start Date: 03/21/20 Status: OrderedBydureon Pen 2 mg subcutaneous injection, extended release See Instructions, Subcutaneous Infusion, administer once a week for DM2 E11.9, # 4 each, 11 Refills,Maintenance, 04/16/20 16:09:00 EDT, [facility] #[id number], 168, cm, 03/21/20 7:01:00 EDT, Height, 104.8, [...] 03/21/20 7:17:00 EDT, Route to Pharmacy Electronically, [facility] #[id number], 168, cm, 03/21/20 7:01:00 EDT, Height, 104.8, kg, 03/18/20 22:56:00 EDT, Dry Weight Start Date: 03/21/20 Status: OrderedPen [place], 31 G x 8 mm BD Ultra [...]
--- OUTSIDE RECORDS SUMMARY | 2022-05-15 11:39 | XMS_ITS | Continuity of Care Document ---
:1980 Author Organization [facility] Adult Address [address] [place] [address]- Care Team Providers Name Role Phone Tavo Mackey MD Primary Care Physician [place] [facility] [place]): [place]23[place]21 - 10/30/21 [facility] [address] [place] [address]- Encounter Diagnosis Cough (Discharge Diagnosis) - 10/23/21 Attending Physician: Not on Staff, Attending MD Allergies, Adverse Reactions, Alerts No Known [...] tablet, 1 Refills, Maintenance, 08/18/21 9:40:00 EST, [facility] #[id number], 170, cm, 08/18/21 9:25:00 EST, Height, 104, [...] 08/18/21 9:40:00 EST, Route to Pharmacy Electronically, [facility] #[id number], 170, cm, 08/18/21 9:25:00 EST, Height, 104, kg, 06/17/21 8:07:00 EDT, Dry Weight Start Date: 08/18/21 Status: OrderedPen [place], 31 G x 8 mm BD Ultra Fine III See Instructions, # 4 Unknown, Refills 6, Tot. Refills 6, Maintenance, DM2, 09/30/21 11:27:00 EST, [facility], 170, cm, 08/18/21 9:25:00 EST, Height, 104, kg, 06/17/21 8:07:00 EDT, Dry Weight Start Date: 09/30/21 Status: Ordered Problem List Condition Effective Dates [...] Status Clinical Serv ice Informant Cough Discharge 10/23/21 Diagnosis Vital Signs Most recent to oldest [Reference Range]: 1 Height 170 cm (10/23/21 9:59 AM) Temperature [96.8-100.4 DegF] 97.2 DegF (10/23/21 9:59 AM) Temperature Route Oral (10/23/21 9:59 AM) Social History Social History Type Response Smoking Status Former smoker, quit more madiha n 30 days ago entered on: 06/09/21 Sex
--- OUTSIDE RECORDS SUMMARY | 2022-05-15 11:39 | XMS_ITS | Continuity of Care Document ---
:1980 Author Organization [facility] Adult Address [address] [place] [address]- Care Team Providers Name Role Phone Key BANGURA, Tavo Maldonado Primary Care Physician [place] [facility] [place]s): 03/25/22 - 04/01/22 [facility] [address] [place] [address]- Encounter Diagnosis Quadriceps tendonitis (Discharge Diagnosis) - 03/25/22 Attending Physician: Gerry Zaldivar Allergies, Adverse Reactions, Alerts No Known Allergies [...] tablet, 0 Refills, Maintenance, 01/02/22 9:56:00 EDT, [facility]... Start Date: 01/02/22 Status: OrderedPen [place], 31 G x 8 mm BD Ultra [...] Gm, 0 Refills, Maintenance, 01/02/22 9:58:00 EDT, [facility] #[id number], Partial fill upon patient request if the [...] GFR>90(Confirmed) Diagnosis Diagnosis Type Effective Dates Health Clinical Infor mant Status Service Quadriceps Discharge 03/25/22 tendonitis Diagnosis Vital Signs Most recent to oldest [Reference Range]: 1 Height 170 cm (03/25/22 2:59 PM) Weight 107.2 kg (03/25/22 2:59 PM) Oxygen Saturation [94-100 %] 98 % (03/25/22 2:59 PM) Pulse Rate [55-90 bpm] 72 bpm (03/25/22 2:59 PM) Body Mass Index [18.5-24.99] 37.09 *>HHI* (03/25/22 2:59 PM) Blood Pressure [90-138/55-84 mm Hg] 131/80 mm Hg (03/25/22 2:59 PM) Mode of Delivery (Oxygen) Room air (03/25/22 2:59 PM) Blood pressure sites Arm, left (03/25/22 2:59 PM) Weight Obtained Via Standing scale (03/25/22 2:59 PM) Social History Social History Type Response Smoking Status Former smoker, quit more madiha n 30 days ago entered on: 06/09/21 Sex
--- OUTSIDE RECORDS SUMMARY | 2022-05-15 11:39 | XMS_ITS | Continuity of Care Document ---
:1980 Author Organization [facility] Adult Address [address] [place] [address]- Care Team Providers Name Role Phone Tavo Mackey MD Primary Care Physician [place] [facility] [place]s): [place]/22/20 - 05/22/20 [facility] Adult [address] [place] [address]- [facility] Attending Physician: Admtr, Ar8 Admitting Physician: Admtr, [...] tablet, 12 Refills, Maintenance, 03/21/20 7:17:00 EDT, [facility] #[id number], 168, cm, 03/21/20 7:01:00 EDT, Height, 104.8, kg, 03/18/20 22:56:00 EDT, Dry Weight Start Date: 03/21/20 Status: OrderedBydureon Pen 2 mg subcutaneous injection, extended release See Instructions, Subcutaneous Infusion, administer once a week for DM2 E11.9, # 4 each, 11 Refills,Maintenance, 04/16/20 16:09:00 EDT, [facility] #[id number], 168, cm, 03/21/20 7:01:00 EDT, Height, 104.8, [...] 03/21/20 7:17:00 EDT, Route to Pharmacy Electronically, [facility] #[id number], 168, cm, 03/21/20 7:01:00 EDT, Height, 104.8, kg, 03/18/20 22:56:00 EDT, Dry Weight Start Date: 03/21/20 Status: OrderedPen [place], 31 G x 8 mm BD Ultra [...]
--- OUTSIDE RECORDS SUMMARY | 2022-05-15 11:39 | XMS_ITS | Continuity of Care Document ---
:1980 Author Organization [facility] Adult Address [address] [place] [address]- Care Team Providers Name Role Phone Key BANGURA, Tavo Maldonado Primary Care Physician En[place] [facility] [place] Date(s): 05/25/21 - 06/24/21 [facility] Adult [address] [place] [address]- Allergies, Adverse Reactions, Alerts Substance Reaction Severity [...] 8:47:00 EDT Start Date: 06/17/21 Status: OrderedFreestyle Aky 14 sensor Freestyle Kay 14 sensor, See [...] II opioiddrug. Start Date: 06/17/21 Status: OrderedPen [place], 31 G x 8 mm BD Ultra [...]
--- OUTSIDE RECORDS SUMMARY | 2022-05-15 11:39 | XMS_ITS | Continuity of Care Document ---
:1980 Author Organization [facility] Adult Address [address] [place] [address]- Care Team Providers Name Role Phone Tavo Mackey MD Primary Care Physician En[place] [facility] [place] [place] Date(s): 03/19/20 - 04/18/20 [facility] Adult [address] [place] [address] [facility] Allergies, Adverse Reactions, Alerts Substance Reaction [...] tablet, 12 Refills, Maintenance, 03/21/20 7:17:00 EDT, [facility] #[id number], 168, cm, 03/21/20 7:01:00 EDT, Height, 104.8, kg, 03/18/20 22:56:00 EDT, Dry Weight Start Date: 03/21/20 Status: OrderedBydureon Pen 2 mg subcutaneous injection, extended release See Instructions, Subcutaneous Infusion, administer once a week for DM2 E11.9, # 4 each, 11 Refills,Maintenance, 04/16/20 16:09:00 EDT, [facility] #[id number], 168, cm, 03/21/20 7:01:00 EDT, Height, 104.8, [...] 03/21/20 7:17:00 EDT, Route to Pharmacy Electronically, [facility] #[id number], 168, cm, 03/21/20 7:01:00 EDT, Height, 104.8, kg, 03/18/20 22:56:00 EDT, Dry Weight Start Date: 03/21/20 Status: OrderedPen [place], 31 G x 8 mm BD Ultra [...]
--- OUTSIDE RECORDS SUMMARY | 2022-05-15 11:39 | XMS_ITS | Continuity of Care Document ---
:[address] [facility] Adult Address [address] [place] [address]- Care Team Providers Name Role Phone Tavo Mackey MD Primary Care Physician [place] [facility] [place]s): 04/15/20 - 05/15/20 [facility] [address] [place] [address] [facility] Allergies, Adverse Reactions, Alerts Substance [...] tablet, 12 Refills, Maintenance, 03/21/20 7:17:00 EDT, [facility] #[id number], 168, cm, 03/21/20 7:01:00 EDT, Height, 104.8, kg, 03/18/20 22:56:00 EDT, Dry Weight Start Date: 03/21/20 Status: OrderedBydureon Pen 2 mg subcutaneous injection, extended release See Instructions, Subcutaneous Infusion, administer once a week for DM2 E11.9, # 4 each, 11 Refills,Maintenance, 04/16/20 16:09:00 EDT, [facility] #[id number], 168, cm, 03/21/20 7:01:00 EDT, Height, 104.8, [...] 03/21/20 7:17:00 EDT, Route to Pharmacy Electronically, [facility] #[id number], 168, cm, 03/21/20 7:01:00 EDT, Height, 104.8, kg, 03/18/20 22:56:00 EDT, Dry Weight Start Date: 03/21/20 Status: OrderedPen [place], 31 G x 8 mm BD Ultra [...]
--- OUTSIDE RECORDS SUMMARY | 2022-05-15 11:39 | XMS_ITS | Continuity of Care Document ---
:1980 Author Organization [facility] Address [address] [place] [address]- Care Team Providers Name Role Phone Tavo Mackey MD Primary Care Physician Encounter [facility] Date(s): 11/15/20 - 11/15/[address] [address]- Discharge Disposition: A-D/C AMA Attending Physician: Jimi Capps MD Admitting Physician: Jimi Capps MD Referring Physician: Jimi Capps MD Allergies, Adverse Reactions, Alerts Substance Reaction [...] 12 Refills, Maintenance, 03/21/20 7:17:00 EDT, [facility] #[id number], 168, cm, 03/21/20 7:01:00 EDT, Height, 104.8, kg, 03/18/20 22:56:00 EDT, Dry Weight Start Date: 03/21/20 Status: OrderedBydureon Pen 2 mg subcutaneous injection, extended release See Instructions, Subcutaneous Infusion, administer once a week for DM2 E11.9, # 4 each, 11 Refills,Maintenance, 04/16/20 16:09:00 EDT, [facility] #[id number], 168, cm, 03/21/20 7:01:00 EDT, Height, 104.8, [...] 03/21/20 7:17:00 EDT, Route to Pharmacy Electronically, [facility] #[id number], 168, cm, 03/21/20 7:01:00 EDT, Height, 104.8, kg, 03/18/20 22:56:00 EDT, Dry Weight Start Date: 03/21/20 Status: OrderedNitroglycerin 2% Topical 1 inches, Ointment, Topically, Apply to Chest, Once, Routine, 11/15/20 1:00:00 EDT, Stop date 11/15/20 1:00:00 EDT Start Date: 11/15/20 Stop Date: 11/15/20 Status: CompletedPen [place], 31 G x 8 mm BD Ultra [...] stage 1 chronic Active kidney disease GFR>90(Confirmed) Results Radiology Reports Exam Date Time Procedure Performing Provider Status 11/14/20 9:35 PM Chest Portable Hank Coreas; Ana (Verified) Notes:(Chest Portable) Reason For Exam: Shortness of BreathRESULT: Chest Portable Chest Portable Hx of Present Illness: Pt states that for the past few hours he has been feeling chest pressure and is now experiencing tingling in his fingers and weakness like he is going to pass out. Pt also statesthat he feels like he cant get a full breath in.; Reason: Shortness of Breath; Clinical Question(s):CHF COMPARISON: None. FINDINGS: Examinations somewhat underpenetrated. LINES AND TUBES: None. LUNGS AND PLEURA: Clear lungs. Normal pulmonary vascularity. No pleural effusion. No pneumothorax. HEART, MEDIASTINUM AND EMILY: Heart is normal in size. Normal upper mediastinal and hilar contour. BONES AND SOFT TISSUES: No acute abnormality. IMPRESSION: No acute abnormality. WSN: [id number] Ordering Physician: Jimi Capps Dictated By: Jeffrey Lloyd MD Dictated Date/Time: 11/14/20 9:38 pm Reviewed By: Jeffrey Lloyd MD Signed By: Jeffrey Lloyd MD Signed Date/Time: 11/14/20 9:38 pm Transcribed By: GRACIELA Transcribed Date/Time: 11/14/20 9:36 pm Vital Signs Most recent to oldest 1 2 3 [Reference Range]: Height 170 cm (11/14/20 9:03 PM) Weight 104.5 kg (11/14/20 9:03 PM) Oxygen Saturation [94-100 99 % 99 % 99 % %] (11/15/20 4:10 AM) (11/15/20 2:05 AM) (11/15/20 12:32 AM) Pulse Rate [55-90 bpm] 80 bpm 78 bpm 69 bpm (11/15/20 4:10 AM) (11/15/20 2:05 AM) (11/15/20 12:32 AM) Blood Pressure 117/63 mm Hg 124/65 mm Hg 120/70 mm Hg [90-138/55-84 mm Hg] (11/15/20 4:10 AM) (11/15/20 2:05 AM) (11/15/20 1 2:32 AM) Respiratory Rate [16-30 20 br/min 16 br/min 16 br/mi n br/min] (11/15/20 4:10 AM) (11/15/20 2:05 AM) (11/15/20 12:32 AM) Temperature [96.8-100.4 96.9 DegF DegF] (11/14/20 9:03 PM) Mode of Delivery (Oxygen) Room air Room air Room a ir (11/15/20 4:10 AM) (11/15/20 2:05 AM) (11/15/20 12:32 AM) Blood pressure sites Arm, left Arm, left Arm, left (11/15/20 4:10 AM) (11/15/20 2:05 AM) (11/15/20 12:32 AM) Temperature Route Temporal (11/14/20 9:03 PM) Dry Weight 104.5 kg (11/14/20 9:03 PM) Weight Obtained Via Patient/family stated (11/14/20 9:03 PM) Dry Weight Obtained Via Patient/family stated (11/14/20 9:03 PM) Social History Social History Type Response Tobacco Use: 4 or less cigarettes(le ss than 1/4 pack)/day in last 30 days. Sex
--- OUTSIDE RECORDS SUMMARY | 2022-05-15 11:39 | XMS_ITS | Continuity of Care Document ---
:1980 Author Organization [facility] Address [address] [place] [address]- Care Team Providers Name Role Phone Tavo Mackey MD Primary Care Physician [id number] Date(s): 06/09/21 - 06/09/[address] [address]- Discharge Disposition: A-D/C Home Attending Physician: Earle Mackey MD Admitting Physician: Earle Mackey MD Referring Physician: Not on Staff, Referring MD Allergies, Adverse Reactions, Alerts Substance Reaction [...] Refills, Soft Stop, 05/18/21 9:33:00 EDT, [facility], 170, cm, 05/18/21 9:13:00 EDT, Height, 104.5, kg, 11/14/20 21:03:00 EDT,Dry Weight Start Date: 05/18/21 Status: Orderedlisinopril 10 mg oral tablet 1, tablet, By Mouth, Daily, # 90 tablet, Refills 0, Tot. Refills 0, Maintenance, 05/11/21 12:02:00 EDT, Route to Pharmacy Electronically, [facility], 170, cm, 01/26/21 8:52:00 EDT, [...] schedule II opioid... Start Date: 06/08/21 Status: OrderedoxyCODONE 5 mg oral tablet 10 mg, Tablet, By Mouth, Once, Routine, 06/09/21 23:00:00 EDT, Stop date 06/09/21 23:00:00 EDT Start Date: 06/09/21 Stop Date: 06/09/21 Status: CompletedPen [place], 31 G x 8 mm BD Ultra [...] GFR>90(Confirmed) Vital Signs Most recent to oldest 1 2 3 [Reference Range]: Height 170 cm (06/09/21 7:58 PM) Weight 107.1 kg (06/09/21 7:58 PM) Oxygen Saturation [94-100 99 % 99 % %] (06/09/21 10:02 PM) (06/09/21 7:58 PM) Pulse Rate [55-90 bpm] 80 bpm 84 bpm (06/09/21 10:02 PM) (06/09/21 7:58 PM) Blood Pressure 124/72 mm Hg 134/75 mm Hg [90-138/55-84 mm Hg] (06/09/21 10:02 PM) (06/09/21 7:58 PM) Respiratory Rate [16-30 20 br/min 20 br/min 18 br/mi n br/min] (06/09/21 10:02 PM) (06/09/21 10:01 PM) ( 7:58 PM) Temperature [96.8-100.4 98.8 DegF DegF] (06/09/21 7:58 PM) Mode of Delivery (Oxygen) Room air Room air (06/09/21 10:02 PM) (06/09/21 7:58 PM) Blood pressure sites Arm, right Arm, right (06/09/21 10:02 PM) (06/09/21 7:58 PM) Temperature Route Oral (06/09/21 7:58 PM) Dry Weight 107.1 kg (06/09/21 7:58 PM) Weight Obtained Via Standing scale (06/09/21 7:58 PM) Dry Weight Obtained Via Standing scale (06/09/21 7:58 PM) Social History Social History Type Response Smoking Status Former smoker, quit more madiha n 30 days ago entered on: 06/09/21 Sex
--- OUTSIDE RECORDS SUMMARY | 2022-05-15 11:39 | XMS_ITS | Continuity of Care Document ---
:1980 Author Organization [facility] Address [address] [place] [address]- Care Team Providers Name Role Phone Tavo Mackey MD Primary Care Physician [place] [facility] [place] Date(s): 06/23/21 - 06/30/21 [facility] [address] [place] [address]- Encounter Diagnosis Finger laceration with complication (Discharge Diagnosis) - 06/23/21 Type 2 diabetes with stage 1 chronic kidney disease GFR>90 (Discharge Diagnosis) - 06/23/21 Attending Physician: Bree Walters NP Referring Physician: [...] II opioiddrug. Start Date: 06/17/21 Status: OrderedPen [place], 31 G x 8 mm BD Ultra [...] Dates Health Clinical Infor mant Status Service Finger laceration Discharge 06/23/21 with complication Diagnosis Type 2 diabetes Discharge 06/23/21 with stage 1 Diagnosis chronic kidney disease GFR>90 Vital Signs Most recent to oldest [Reference Range]: 1 Height 170 cm (06/23/21 10:22 AM) Weight 107.3 kg (06/23/21 10:22 AM) Oxygen Saturation [94-100 %] 98 % (06/23/21 10: AM) Pulse Rate [55-90 bpm] 80 bpm (06/23/21 10:22 AM) Body Mass Index [18.5-24.99] 37.13 *>HHI* (06/23/21 10:22 AM) Blood Pressure [90-138/55-84 mm Hg] 118/70 mm Hg (06/23/21 10:22 AM) Temperature [96.8-100.4 DegF] 98.5 DegF (06/23/21 10:22 AM) Mode of Delivery (Oxygen) Room air (06/23/21 10:22 AM) Blood pressure sites Arm, right (06/23/21 10:22 AM) Temperature Route Oral (06/23/21 10:22 AM) Weight Obtained Via Standing scale (06/23/21 10:22 AM) Social History Social History Type Response Smoking Status Former smoker, quit more madiha n 30 days ago entered on: 06/09/21 Sex
--- OUTSIDE RECORDS SUMMARY | 2022-05-15 11:40 | XMS_ITS | Continuity of Care Document ---
:1980 Author Organization [facility] Address [address] [place] [address]- Care Team Providers Name Role Phone Tavo Mackey MD Primary Care Physician [place] [facility] [place] 02[place]21 [facility] [address], [place] [address] Attending Physician: Bree Walters NP Referring Physician: [...] tablet, 12 Refills, Maintenance, 03/21/20 7:17:00 EDT, [facility] #[id number], 168, cm, 03/21/20 7:01:00 EDT, Height, 104.8, kg, 03/18/20 22:56:00 EDT, Dry Weight Start Date: 03/21/20 Status: OrderedBydureon Pen 2 mg subcutaneous injection, extended release See Instructions, Subcutaneous Infusion, administer once a week for DM2 E11.9, # 4 each, 11 Refills,Maintenance, 04/16/20 16:09:00 EDT, [facility] #[id number], 168, cm, 03/21/20 7:01:00 EDT, Height, 104.8, kg, 03/18/20 22:56:00 EDT, Dry Weight Start Date: 04/16/20 Status: OrderedFree Style 14 day reader Free Style 14 day reader, See Instructions, # 1 each, Refills 0, Tot. Refills 0, Maintenance, DM2 E11.9, 11/24/20 7:52:00 EDT, Compound, 170, cm, 11/14/20 21:03:00 EDT, Height, 104.5, kg, 11/14/20 21:03:00 EDT, Dry Weight Start Date: 11/24/20 Status: OrderedFreestyle [place] 14 sensor Freestyle Kay 14 sensor, See [...] 03/21/20 7:17:00 EDT, Route to Pharmacy Electronically, [facility] #[id number], 168, cm, 03/21/20 7:01:00 EDT, Height, 104.8, kg, 03/18/20 22:56:00 EDT, Dry Weight Start Date: 03/21/20 Status: OrderedPen [place], 31 G x 8 mm BD Ultra [...] oldest [Reference Range]: 1 Height 170 cm (01/26/21 8:52 AM) Weight 106.6 kg (01/26/21 8:52 AM) Oxygen Saturation [94-100 %] 98 % (01/26/21 8:52 AM) Pulse Rate [55-90 bpm] 81 bpm (01/26/21 8:52 AM) Body Mass Index [18.5-24.99] 36.89 *>HHI* (01/26/21 8:52 AM) Blood Pressure [90-138/55-84 mm Hg] 112/64 mm Hg (01/26/21 8:52 AM) Temperature [96.8-100.4 DegF] 99.1 DegF (01/26/21 8:52 AM) Mode of Delivery (Oxygen) Room air (01/26/21 8:52 AM) Blood pressure sites Arm, right (01/26/21 8:52 AM) Temperature Route Oral (01/26/21 8:52 AM) Weight Obtained Via Standing scale (01/26/21 8:52 AM) Social History Social History Type Response Tobacco Use: 4 or less cigarettes(le ss than 1/4 pack)/day in last 30 days. Sex
--- OUTSIDE RECORDS SUMMARY | 2022-05-15 11:40 | XMS_ITS | Continuity of Care Document ---
:1980 Author Organization [facility] Adult Address [address] [place] [address]- Care Team Providers Name Role Phone Tavo Mackey MD Primary Care Physician En[place] [facility] [place] Date(s): 07/07/21 - 07/14/21 [facility] [address] [place] [address]- Encounter Diagnosis Type 2 diabetes with stage 1 chronic kidney disease GFR>90 (Discharge Diagnosis) - 07/07/21 Current use of insulin (Discharge Diagnosis) - 07/07/21 Finger laceration with complication (Discharge Diagnosis) - 07/07/21 Attending Physician: Bree Walters NP Referring Physician: [...] II opioiddrug. Start Date: 06/17/21 Status: OrderedPen [place], 31 G x 8 mm BD Ultra [...] Diagnosis Type Effective Dates Health Clinical Infor [facility] Status Service Type 2 diabetes Discharge 07/07/21 with stage 1 Diagnosis chronic kidney disease GFR>90 Current use of Discharge 07/07/21 insulin Diagnosis Finger laceration Discharge 07/07/21 with complication Diagnosis Vital Signs Most recent to oldest [Reference Range]: 1 2 Height 170 cm 170 cm (07/07/21 10:35 AM) (07/07/21 10:15 AM) Weight 107.9 kg (07/07/21 10:15 AM) Oxygen Saturation [94-100 %] 99 % (07/07/21 10:15 AM) Pulse Rate [55-90 bpm] 104 bpm *H* (07/07/21 10:15 AM) Body Mass Index [18.5-24.99] 37.34 *>HHI* (07/07/21 10:15 AM) Blood Pressure [90-138/55-84 mm Hg] 138/82 mm Hg 150/ 84 mm Hg (07/07/21 10:35 AM) *H* (07/07/21 10:15 AM) Temperature [96.8-100.4 DegF] 98.7 DegF (07/07/21 10:15 AM) Mode of Delivery (Oxygen) Room air (07/07/21 10:15 AM) Blood pressure sites Arm, right Arm, right (07/07/21 10:35 AM) (07/07/21 10:15 AM) Temperature Route Oral (07/07/21 10:15 AM) Weight Obtained Via Standing scale (07/07/21 10:15 AM) Social History Social History Type Response Smoking Status Former smoker, quit more madiha n 30 days ago entered on: 06/09/21 Sex
--- OUTSIDE RECORDS SUMMARY | 2022-05-15 11:40 | XMS_ITS | Continuity of Care Document ---
:1980 Author Organization [facility] Address [address] [place] [address]- Care Team Providers Name Role Phone Tavo Mackey MD Primary Care Physician [place] [facility] [place] 12/02/20 - 01/01/21 [facility] [address] [place], [place] [address] Allergies, Adverse Reactions, Alerts Substance Reaction Severity [...] tablet, 12 Refills, Maintenance, 03/21/20 7:17:00 EDT, [facility] #[id number], 168, cm, 03/21/20 7:01:00 EDT, Height, 104.8, kg, 03/18/20 22:56:00 EDT, Dry Weight Start Date: 03/21/20 Status: OrderedBydureon Pen 2 mg subcutaneous injection, extended release See Instructions, Subcutaneous Infusion, administer once a week for DM2 E11.9, # 4 each, 11 Refills,Maintenance, 04/16/20 16:09:00 EDT, [facility] #[id number], 168, cm, 03/21/20 7:01:00 EDT, Height, 104.8, [...] 03/21/20 7:17:00 EDT, Route to Pharmacy Electronically, [facility] #[id number], 168, cm, 03/21/20 7:01:00 EDT, Height, 104.8, kg, 03/18/20 22:56:00 EDT, Dry Weight Start Date: 03/21/20 Status: OrderedPen [place], 31 G x 8 mm BD Ultra [...]
--- OUTSIDE RECORDS SUMMARY | 2022-05-15 11:40 | XMS_ITS | Continuity of Care Document ---
:1980 Author Organization [facility] Adult Address [address] [place] [address]- Care Team Providers Name Role Phone Tavo Mackey MD Primary Care Physician Encounter [facility] [place] Date(s): 03/21/20 - 03/28/20 [facility] Adult [address] [place] [address]- [facility] Attending Physician: Tavo Mackey MD Referring Physician: Selena LARA, Bree Jaime Allergies, Adverse Reactions, Alerts Substance Reaction Severity [...] tablet, 12 Refills, Maintenance, 03/21/20 7:17:00 EDT, [facility][id number], 168, cm, 03/21/20 7:01:00 EDT, Height, 104.8, kg, 03/18/20 22:56:00 EDT, Dry Weight Start Date: 03/21/20 Status: OrderedBydureon Pen 2 mg subcutaneous injection, extended release See Instructions, Subcutaneous Infusion, administer once a week for DM2 E11.9 *replaces bydureon kit, # 4 each, 11 Refills, Maintenance, 03/21/20 7:15:00 EDT, [facility] #[id number], 168, cm, 03/21/20 7:01:00 EDT, Height, 104.8, kg, 03/18/20 22... Start Date: 03/21/20 Status: OrderedLantus Solostar Pen 100 units/mL subcutaneous solution See Instructions, # 90 mL, Refills 3 Tot. Refills 3, INJECT 85 UNITS UNDER THE SKIN DAILY, [facility] Start Date: 05/28/19 Status: Orderedlisinopril 10 mg oral tablet 1, tablet, By Mouth, Daily, # 90 tablet, Refills 4, Tot. Refills 4, Maintenance, 03/21/20 7:17:00 EDT, Route to Pharmacy Electronically, [facility] #[id number], 168, cm, 03/21/20 7:01:00 EDT, Height, 104.8, kg, 03/18/20 22:56:00 EDT, Dry Weight Start Date: 03/21/20 Status: Ordered Problem List Condition Effective Dates Status Health Status Informant Anger(Confirmed) Active CKD (chronic kidney disease) stage 1, Active GFR 90 ml/min or greater(Confirmed) Pilonidal cyst(Confirmed) Active Current use of insulin(Confirmed) Active Hypercholesterolemia(Confirmed) Active Tobacco abuse(Confirmed) Active Type 2 diabetes with stage 1 chronic Active kidney disease GFR>90(Confirmed) Vital Signs Most recent to oldest [Reference Range]: 1 Height 168 cm (03/21/20 7:01 AM) Weight 105.1 kg (03/21/20 7:01 AM) Oxygen Saturation [94-100 %] 98 % (03/21/20 7:01 AM) Pulse Rate [55-90 bpm] 96 bpm *H* (03/21/20 7:01 AM) Body Mass Index [18.5-24.99] 37.24 *>HHI* (03/21/20 7:01 AM) Blood Pressure [90-138/55-84 mm Hg] 126/76 mm Hg (03/21/20 7:01 AM) Temperature [96.8-100.4 DegF] 98.3 DegF (03/21/20 7:01 AM) Blood pressure sites Arm, left (03/21/20 7:01 AM) Social History Social History Type Response Tobacco Use: 4 or less cigarettes(le ss than 1/4 pack)/day in last 30 days. Sex
--- OUTSIDE RECORDS SUMMARY | 2022-05-15 11:40 | XMS_ITS | Continuity of Care Document ---
:1980 Author Organization [facility] Adult Address [address] [place] [address]- Care Team Providers Name Role Phone Tavo Mackey MD Primary Care Physician En[facility] [place] Date(s): 12/18/20 - 01/17/21 [facility] [address] [place], [place] [address] Allergies, Adverse Reactions, Alerts [...] tablet, 12 Refills, Maintenance, 03/21/20 7:17:00 EDT, [facility] #[id number], 168, cm, 03/21/20 7:01:00 EDT, Height, 104.8, kg, 03/18/20 22:56:00 EDT, Dry Weight Start Date: 03/21/20 Status: OrderedBydureon Pen 2 mg subcutaneous injection, extended release See Instructions, Subcutaneous Infusion, administer once a week for DM2 E11.9, # 4 each, 11 Refills,Maintenance, 04/16/20 16:09:00 EDT, [facility] #[id number], 168, cm, 03/21/20 7:01:00 EDT, Height, 104.8, [...] 03/21/20 7:17:00 EDT, Route to Pharmacy Electronically, [facility] #[id number], 168, cm, 03/21/20 7:01:00 EDT, Height, 104.8, kg, 03/18/20 22:56:00 EDT, Dry Weight Start Date: 03/21/20 Status: OrderedPen [place], 31 G x [...]
--- OUTSIDE RECORDS SUMMARY | 2022-05-15 11:40 | XMS_ITS | Continuity of Care Document ---
:1980 Author Organization [facility] Address [address] [place] [address]- Care Team Providers Name Role Phone Key BANGURA, Tavo Maldonado Primary Care Physician [place] [facility] [place] 11/24/20 - 12/28/20 [facility] [address] [place], [place] [address] Attending Physician: Bree Walters NP Allergies, Adverse Reactions, Alerts Substance Reaction Severity [...] tablet, 12 Refills, Maintenance, 03/21/20 7:17:00 EDT, [facility] #[id number], 168, cm, 03/21/20 7:01:00 EDT, Height, 104.8, kg, 03/18/20 22:56:00 EDT, Dry Weight Start Date: 03/21/20 Status: OrderedBydureon Pen 2 mg subcutaneous injection, extended release See Instructions, Subcutaneous Infusion, administer once a week for DM2 E11.9, # 4 each, 11 Refills,Maintenance, 04/16/20 16:09:00 EDT, [facility] #[id number], 168, cm, 03/21/20 7:01:00 EDT, Height, 104.8, [...] 03/21/20 7:17:00 EDT, Route to Pharmacy Electronically, [facility] #[id number], 168, cm, 03/21/20 7:01:00 EDT, Height, 104.8, kg, 03/18/20 22:56:00 EDT, Dry Weight Start Date: 03/21/20 Status: OrderedPen [place], 31 G x 8 mm BD Ultra [...]
--- OUTSIDE RECORDS SUMMARY | 2022-05-15 11:40 | XMS_ITS | Continuity of Care Document ---
:1980 Author Organization [facility] Adult Address [address] [place] [address]- Care Team Providers Name Role Phone Tavo Mackey MD Primary Care Physician [place] [facility] [place] 05[place]25/21 [facility] [address] [place] [address]- Attending Physician: Bree Walters NP Referring Physician: [...] EDT, Dry Weight Start Date: 05/11/21 Status: OrderedFree Style 14 day reader Free Style 14 day reader, See Instructions, # 1 each, Refills 11, Tot. Refills 11, Maintenance, DM2 E11.9, 05/22/21 9:02:00 EDT, [facility], 170, cm, 05/18/21 9:13:00 EDT, Height, 104.5, kg, 11/14/20 21:03:00 EDT, Dry Weight Start Date: 05/22/21 Status: OrderedFreestyle Kay 14 sensor Freestyle Kay [...] Refills, Soft Stop, 05/18/21 9:33:00 EDT, [facility], 170, cm, 05/18/21 9:13:00 EDT, [...] Dry Weight Start Date: 05/11/21 Status: OrderedPen [place], 31 G x 8 mm BD Ultra [...] oldest [Reference Range]: 1 Height 170 cm (05/18/21 9:13 AM) Weight 109.3 kg (05/18/21 9:13 AM) Oxygen Saturation [94-100 %] 99 % (05/18/21 9:13 AM) Pulse Rate [55-90 bpm] 80 bpm (05/18/21 9:13 AM) Body Mass Index [18.5-24.99] 37.82 *>HHI* (05/18/21 9:13 AM) Blood Pressure [90-138/55-84 mm Hg] 124/74 mm Hg (05/18/21 9:13 AM) Respiratory Rate [16-30 br/min] 20 br/min (05/18/21 9:13 AM) Temperature [96.8-100.4 DegF] 98.1 DegF (05/18/21 9:13 AM) Blood pressure sites Arm, right (05/18/21 9:13 AM) Temperature Route Oral (05/18/21 9:13 AM) Weight Obtained Via Standing scale (05/18/21 9:13 AM) Social History Social History Type Response Smoking Status Use: 4 or less cigarettes(le ss than 1/4 pack)/day in last 30 days; Former smoker, quit more than 30 days ago entered on: 05/18/21 Sex
--- OUTSIDE RECORDS SUMMARY | 2022-05-15 11:40 | XMS_ITS | Continuity of Care Document ---
:1980 Author Organization [facility] Adult Address [address] [place] [address]- Care Team Providers Name Role Phone Tavo Mackey MD Primary Care Physician [place] [facility] [place] 08/18/21 - 08/25/21 [facility] [address] [place] [address]- Attending Physician: Bree Walters NP Referring Physician: [...] tablet, 1 Refills, Maintenance, 08/18/21 9:40:00 EST, [facility][id number], 170, cm, 08/18/21 9:25:00 EST, Height, 104, [...] 08/18/21 9:40:00 EST, Route to Pharmacy Electronically, [facility] #[id number], 170, cm, 08/18/21 9:25:00 EST, Height, 104, kg, 06/17/21 8:07:00 EDT, Dry Weight Start Date: 08/18/21 Status: OrderedoxyCODONE 5 mg oral tablet 5 mg, 1, tablet, By Mouth, Every 4 hours, PRN, Refills 0, Tot. Refills 0, Maintenance, for pain, 06/17/21 10:01:00 EDT, Partial fill upon patient request if the prescription is for a schedule II opioiddrug. Start Date: 06/17/21 Status: OrderedPen [place], 31 G x 8 mm BD Ultra [...] oldest [Reference Range]: 1 Height 170 cm (08/18/21 9:25 AM) Weight 107.9 kg (08/18/21 9:25 AM) Oxygen Saturation [94-100 %] 99 % (08/18/21 9:25 AM) Pulse Rate [55-90 bpm] 71 bpm (08/18/21 9:25 AM) Body Mass Index [18.5-24.99] 37.34 *>HHI* (08/18/21 9:25 AM) Blood Pressure [90-138/55-84 mm Hg] 140/90 mm Hg *H* (08/18/21 9:25 AM) Respiratory Rate [16-30 br/min] 20 br/min (08/18/21 9:25 AM) Temperature [96.8-100.4 DegF] 98.0 DegF (08/18/21 9:25 AM) Mode of Delivery (Oxygen) Room air (08/18/21 9:25 AM) Blood pressure sites Arm, right (08/18/21 9:25 AM) Temperature Route Oral (08/18/21 9:25 AM) Weight Obtained Via Standing scale (08/18/21 9:25 AM) Social History Social History Type Response Smoking Status Former smoker, quit more madiha n 30 days ago entered on: 06/09/21 Sex
--- OUTSIDE RECORDS SUMMARY | 2022-05-15 11:40 | XMS_ITS | Continuity of Care Document ---
:1980 Author Organization [facility] Adult Address [address] [place] [address]- Care Team Providers Name Role Phone Key BANGURA, Tavo Maldonado Primary Care Physician En[place] [facility] [place] Date(s): 05/18/21 - 06/17/21 [facility] [address] [place] [address]- Allergies, Adverse Reactions, Alerts Substance Reaction Severity [...] II opioiddrug. Start Date: 06/17/21 Status: OrderedPen [place], 31 G x 8 mm BD Ultra [...]
--- OUTSIDE RECORDS SUMMARY | 2022-05-15 11:40 | XMS_ITS | Continuity of Care Document ---
:1980 Author Organization [facility] Adult Address [address] [place] [address]- Care Team Providers Name Role Phone Key BANGURA, Tavo Maldonado Primary Care Physician [place] [facility] [place]21 [facility] [address] [place] [address]- Allergies, Adverse Reactions, Alerts Substance Reaction Severity [...] II opioiddrug. Start Date: 06/17/21 Status: OrderedPen [place], 31 G x 8 mm BD Ultra [...]
--- OUTSIDE RECORDS SUMMARY | 2022-05-15 11:40 | XMS_ITS | Continuity of Care Document ---
:1980 Author Organization [facility] Adult Address [address] [place] [address]- Care Team Providers Name Role Phone Key BANGURA, Tavo Maldonado Primary Care Physician Encounter [facility] [place] Date(s): 12/16/20 - 12/23/20 [facility] Adult [address] [place], [place] [address] Attending Physician: Not on Staff, Attending MD Referring Physician: Selena LARA, Bree Jaime [...] tablet, 12 Refills, Maintenance, 03/21/20 7:17:00 EDT, [facility] #[id number], 168, cm, 03/21/20 7:01:00 EDT, Height, 104.8, kg, 03/18/20 22:56:00 EDT, Dry Weight Start Date: 03/21/20 Status: OrderedBydureon Pen 2 mg subcutaneous injection, extended release See Instructions, Subcutaneous Infusion, administer once a week for DM2 E11.9, # 4 each, 11 Refills,Maintenance, 04/16/20 16:09:00 EDT, [facility] #[id number], 168, cm, 03/21/20 7:01:00 EDT, Height, 104.8, [...] 03/21/20 7:17:00 EDT, Route to Pharmacy Electronically, [facility] #[id number], 168, cm, 03/21/20 7:01:00 EDT, Height, 104.8, kg, 03/18/20 22:56:00 EDT, Dry Weight Start Date: 03/21/20 Status: OrderedPen [place], 31 G x 8 mm BD Ultra [...] oldest [Reference Range]: 1 Height 170 cm (12/16/20 7:42 AM) Weight 105.6 kg (12/16/20 7:42 AM) Oxygen Saturation [94-100 %] 98 % (12/16/20 7:42 AM) Pulse Rate [55-90 bpm] 73 bpm (12/16/20 7:42 AM) Body Mass Index [18.5-24.99] 36.54 *>HHI* (12/16/20 7:42 AM) Blood Pressure [90-138/55-84 mm Hg] 110/70 mm Hg (12/16/20 7:42 AM) Blood pressure sites Arm, right (12/16/20 7:42 AM) Social History Social History Type Response Tobacco Use: 4 or less cigarettes(le ss than 1/4 pack)/day in last 30 days. Sex
--- OUTSIDE RECORDS SUMMARY | 2022-05-15 11:40 | XMS_ITS | Continuity of Care Document ---
:1980 Author Organization [facility] Address [address] [place] [address]- Care Team Providers Name Role Phone Tavo Mackey MD Primary Care Physician Encounter [facility] [id number] Date(s): 07/28/21 - 08/27/[address] [address] Allergies, Adverse Reactions, Alerts No Known [...] tablet, 1 Refills, Maintenance, 08/18/21 9:40:00 EST, [facility] #[id number], 170, cm, 08/18/21 9:25:00 EST, Height, 104, [...] 08/18/21 9:40:00 EST, Route to Pharmacy Electronically, [facility] #[id number], 170, cm, 08/18/21 9:25:00 EST, Height, 104, kg, 06/17/21 8:07:00 EDT, Dry Weight Start Date: 08/18/21 Status: OrderedoxyCODONE 5 mg oral tablet 5 mg, 1, tablet, By Mouth, Every 4 hours, PRN, Refills 0, Tot. Refills 0, Maintenance, for pain, 06/17/21 10:01:00 EDT, Partial fill upon patient request if the prescription is for a schedule II opioiddrug. Start Date: 06/17/21 Status: OrderedPen [place], 31 G x 8 mm BD [...]
--- OUTSIDE RECORDS SUMMARY | 2022-05-15 11:40 | XMS_ITS | Continuity of Care Document ---
:1980 Author Organization [facility] Adult Address [address] [place] [address]- Care Team Providers Name Role Phone Tavo Mackey MD Primary Care Physician Encounter [facility] [place] Date(s): 11/20/21 - 12/20/21 [facility] Adult [address] [place] [address]- Allergies, Adverse Reactions, Alerts No Known Allergies [...] Dry Weight Start Date: 12/02/21 Status: OrderedPen [place], 31 G x 8 mm BD Ultra [...]
--- OUTSIDE RECORDS SUMMARY | 2022-05-15 11:40 | XMS_ITS | Continuity of Care Document ---
:1980 Author Organization [facility] Address [address] [place] [address]- Care Team Providers Name Role Phone Tavo Mackey MD Primary Care Physician Encounter [facility] Date(s): 08/06/19 - 08/06/[address] [address]- [facility] Discharge Disposition: A-D/C Home Attending Physician: Sonya Hubbard MD Admitting Physician: Sonya Hubbard MD Referring Physician: Sonya Hubbard MD Allergies, Adverse Reactions, Alerts Substance Reaction [...] Status: Orderedatorvastatin 40 mg oral tablet 1 tablet = 40 mg, By Mouth, Daily, # 30 tablet, 1 Refills, Maintenance, Tablet, Route to Pharmacy Electronically, [id number], [facility] Start Date: 08/29/18 Status: OrderedColace Clear = 100 mg, By [...] 05/28/19 Status: Orderedlisinopril 10 mg oral tablet 10 mg, 1, tablet, By Mouth, Daily, # 90 tablet, Refills 1, Tot. Refills 1, Maintenance, 08/29/18 16:55:25 EST, Route to Pharmacy Electronically, [id number], [facility] Start Date: 08/29/18 Status: OrderedNuLYTELY with Flavor Packs oral powder [...] 9:16:47 EDT Start Date: 11/15/18 Status: OrderedPen [place], 31 G x 5 mm BD Ultra Fine III See Instructions, # 200 each, Refills 11, Tot. Refills 11, Maintenance, dm2 E11.9 USE DIRECTED WITHinsulin pen, 11/15/18 13:50:56 EDT, REFAXED, Compound Start Date: 11/15/18 Status: OrderedV-GO 40 V-GO 40, See Instructions, # 30 each, Refills 11, Tot. Refills 11, Maintenance, [facility] contact [phone] to be used daily with humalog, 11/15/18 [...] oldest 1 2 3 [Reference Range]: Height 170.18 cm (08/06/19 10:01 AM) Weight 106.81 kg (08/06/19 10:01 AM) Oxygen Saturation [94-100 99 % 99 % 98 % %] (08/06/19 11:30 AM) (08/06/19 11:25 AM) ( 9 11:20 AM) Pulse Rate [55-90 bpm] 81 bpm (08/06/19 10:01 AM) Body Mass Index 36.88 [18.5-24.99] *>HHI* (08/06/19 10:01 AM) Blood Pressure 151/92 mm Hg 131/89 mm Hg 127/89 mm Hg [90-138/55-84 mm Hg] *H* (08/06/19 11:25 AM) ( 11:20 AM) (08/06/19 11:30 AM) Respiratory Rate [16-30 12 br/min 17 br/min 20 br/mi n br/min] *L* (08/06/19 11:25 AM) (08/06/19 11 :20 AM) (08/06/19 11:30 AM) Temperature [96.8-100.4 98.3 DegF DegF] (08/06/19 10:01 AM) Liters per Minute 3 L/min (08/06/19 11:15 AM) Mode of Delivery (Oxygen) Room air (08/06/19 10:01 AM) Blood pressure sites Arm, left (08/06/19 10:01 AM) Weight Obtained Via Patient/family stated (08/06/19 10:01 AM) Social History Social History Type Response Tobacco Use: 4 or less cigarettes(le ss than 1/4 pack)/day in last 30 days. Sex
--- OUTSIDE RECORDS SUMMARY | 2022-05-15 11:40 | XMS_ITS | Continuity of Care Document ---
:1980 Author Organization [facility] Adult Address [address] [place] [address]- Care Team Providers Name Role Phone Tavo Mackey MD Primary Care Physician Encounter [facility] [place] Date(s): 03/24/22 - 04/23/22 [facility] Adult [address] [place] [address]- Allergies, Adverse Reactions, Alerts No Known Allergies [...] tablet, 6 Refills, Maintenance, 04/23/22 14:31:00 EDT,Tablet, [facility] #[id number], Partial fill upon patient request if the [...] Dry Weight Start Date: 12/02/21 Status: OrderedPen [place], 31 G x 8 mm BD Ultra [...] mL, 0 Refills, Maintenance, 04/02/22 9:42:00 EDT, [facility] #[id number], 170, cm, 03/25/22 14:59:00 EDT, Height, 104, kg, 06/17/21 8:07:00 EDT, Dry Weight Start Date: 04/02/22 Stop Date: 07/01/22 Status: OrderedVitamin D3 50,000 intl units oral capsule 1 capsule = 1,250 mcg, By Mouth, Every week, with food, # 4 capsule, 0 Refills, Maintenance, 04/23/22 14:35:00 EDT, Capsule, [facility] #[id number], Partial fill upon patient request if the [...] kidney disease GFR>90(Confirmed) Vitamin D deficiency(Confirmed) Active Social History Social History Type Response Smoking Status Former smoker, quit more madiha n 30 days ago entered on: 06/09/21 Sex Care Team PersonnelName: Tavo Mackey MD Address: [address] [place] [id number]
--- OUTSIDE RECORDS SUMMARY | 2022-05-15 11:40 | XMS_ITS | Continuity of Care Document ---
:1980 Author Organization [facility] Address [address] [place] [address]- Care Team Providers Name Role Phone Tavo Mackey MD Primary Care Physician Encounter [facility] Date(s): 11/21/19 - 11/21/[address] [address]- [facility] Discharge Disposition: A-D/C Home Attending Physician: Jay Munroe MD Admitting Physician: Jay Munroe MD Referring Physician: Not on Staff, Referring [...] 9:16:47 EDT Start Date: 11/15/18 Status: OrderedPen [place], 31 G x 5 mm BD Ultra Fine III See Instructions, # 200 each, Refills 11, Tot. Refills 11, Maintenance, dm2 E11.9 USE DIRECTED WITHinsulin pen, 11/15/18 13:50:56 EDT, REFAXED, Compound Start Date: 11/15/18 Status: OrderedV-GO 40 V-GO 40, See Instructions, # 30 each, Refills 11, Tot. Refills 11, Maintenance, V-GO delivery 40 [facility] contact [phone] to be used daily with humalog, 11/15/18 [...] oldest [Reference Range]: 1 Height 168 cm (11/21/19 2:34 PM) Weight 103.6 kg (11/21/19 2:34 PM) Oxygen Saturation [94-100 %] 100 % (11/21/19 2:34 PM) Pulse Rate [55-90 bpm] 94 bpm *H* (11/21/19 2:34 PM) Blood Pressure [90-138/55-84 mm Hg] 157/94 mm Hg *H* (11/21/19 2:34 PM) Respiratory Rate [16-30 br/min] 20 br/min (11/21/19 2:34 PM) Temperature [96.8-100.4 DegF] 98.8 DegF (11/21/19 2:34 PM) Mode of Delivery (Oxygen) Room air (11/21/19 2:34 PM) Blood pressure sites Arm, right (11/21/19 2:34 PM) Temperature Route Oral (11/21/19 2:34 PM) Dry Weight 103.6 kg (11/21/19 2:34 PM) Weight Obtained Via Standing scale (11/21/19 2:34 PM) Dry Weight Obtained Via Standing scale (11/21/19 2:34 PM) Social History Social History Type Response Tobacco Use: 4 or less cigarettes(le ss than 1/4 pack)/day in last 30 days. Sex
--- OUTSIDE RECORDS SUMMARY | 2022-05-15 11:40 | XMS_ITS | Continuity of Care Document ---
:1980 Author Organization [facility] Adult Address [address] [place] [address]- Care Team Providers Name Role Phone Tavo Mackey MD Primary Care Physician Encounter [facility] [place] Date(s): 11/18/21 - 03/18/22 [facility] Adult [address] [place] [address]- Attending Physician: Bree Walters NP Referring Physician: [...] cm, 11/17/21 8:51:00 EDT, Height, 104, kg, 11/03/21 8:07:00 EDT, Dry Weight Start Date: 12/02/21 [...] Refills, Soft Stop, 11/17/21 9:18:00 EDT, [facility], 170, cm, 11/17/21 8:51:00 EDT, [...] tablet, 0 Refills, Maintenance, 01/02/22 9:56:00 EDT, [facility] #[facility]... Start Date: 01/02/22 Status: OrderedPen [place], 31 G x 8 mm BD Ultra [...] Gm, 0 Refills, Maintenance, 01/02/22 9:58:00 EDT, [facility] #[id number], Partial fill upon patient request if the [...]
--- OUTSIDE RECORDS SUMMARY | 2022-05-15 11:40 | XMS_ITS | Continuity of Care Document ---
:1980 Author Organization [facility] Address [address] [place] [address]- Care Team Providers Name Role Phone Tavo Mackey MD Primary Care Physician Encounter [facility] [place] Date(s): 01/02/22 - 02/01/22 [facility] [address] [place], [place] [address] Attending Physician: Tara Mendez Admitting Physician: Tara Mendez Referring Physician: Admtr, Tara Allergies, Adverse Reactions, Alerts No Known Allergies [...] tablet, 0 Refills, Maintenance, 01/02/22 9:56:00 EDT, [facility]... Start Date: 01/02/22 Status: OrderedPen [place], 31 G x 8 mm BD Ultra [...] Gm, 0 Refills, Maintenance, 01/02/22 9:58:00 EDT, [facility] #[id number], Partial fill upon patient request if the [...]
--- OUTSIDE RECORDS SUMMARY | 2022-05-15 11:40 | XMS_ITS | Continuity of Care Document ---
:1980 Author Organization [facility] Adult Address [address] [place] [address]- Care Team Providers Name Role Phone Tavo Mackey MD Primary Care Physician Encounter [facility] [place] Date(s): 03/05/21 - 05/03/21 [facility] Adult [address] [place], [place] [address] Attending Physician: Not on Staff, Attending [...] tablet, 5 Refills, Maintenance, 04/04/21 6:42:00 EDT, [facility] #[id number], 170, cm, 01/26/21 8:52:00 EDT, Height, 104.5, kg, 11/14/20 21:03:00 EDT, Dry Weight Start Date: 04/04/21 Status: OrderedBydureon Pen 2 mg subcutaneous injection, extended release See Instructions, Subcutaneous Infusion, administer once a week for DM2 E11.9, # 4 each, 11 Refills,Maintenance, 04/16/20 16:09:00 EDT, [facility] #[id number], 168, cm, 03/21/20 7:01:00 EDT, Height, 104.8, [...] 04/04/21 6:42:00 EDT, Route to Pharmacy Electronically, [facility] #[id number], 170, cm, 01/26/21 8:52:00 EDT, Height, 104.5, kg, 11/14/20 21:03:00 EDT, Dry Weight Start Date: 04/04/21 Status: OrderedPen [place], 31 G x 8 mm BD Ultra [...]
--- OUTSIDE RECORDS SUMMARY | 2022-05-15 11:40 | XMS_ITS | Continuity of Care Document ---
:1980 Author Organization [facility] Address [address] [place] [address]- Care Team Providers Name Role Phone Tavo Mackey MD Primary Care Physician Encounter [facility] Date(s): 07/24/21 - 08/27/[address] [address]- Attending Physician: Baljit Tsang MD Allergies, Adverse Reactions, Alerts No Known [...] tablet, 1 Refills, Maintenance, 08/18/21 9:40:00 EST, [facility] #[id number], 170, cm, 08/18/21 9:25:00 EST, Height, 104, [...] 08/18/21 9:40:00 EST, Route to Pharmacy Electronically, [facility] #[id number], 170, cm, 08/18/21 9:25:00 EST, Height, 104, kg, 06/17/21 8:07:00 EDT, Dry Weight Start Date: 08/18/21 Status: OrderedoxyCODONE 5 mg oral tablet 5 mg, 1, tablet, By Mouth, Every 4 hours, PRN, Refills 0, Tot. Refills 0, Maintenance, for pain, 06/17/21 10:01:00 EDT, Partial fill upon patient request if the prescription is for a schedule II opioiddrug. Start Date: 06/17/21 Status: OrderedPen [place], 31 G x 8 mm BD Ultra [...]
--- OUTSIDE RECORDS SUMMARY | 2022-05-15 11:40 | XMS_ITS | Continuity of Care Document ---
:[address] [facility] Adult Address [address] [place] [address]- Care Team Providers Name Role Phone Tavo Mackey MD Primary Care Physician Encounter [facility] [place] Date(s): 01/26/21 - 04/08/21 [facility] Adult [address] [place], [place] [address] Attending Physician: Bree Walters NP Referring Physician: [...] tablet, 5 Refills, Maintenance, 04/04/21 6:42:00 EDT, [facility] #[id number], 170, cm, 01/26/21 8:52:00 EDT, Height, 104.5, kg, 11/14/20 21:03:00 EDT, Dry Weight Start Date: 04/04/21 Status: OrderedBydureon Pen 2 mg subcutaneous injection, extended release See Instructions, Subcutaneous Infusion, administer once a week for DM2 E11.9, # 4 each, 11 Refills,Maintenance, 04/16/20 16:09:00 EDT, [facility] #[id number], 168, cm, 03/21/20 7:01:00 EDT, Height, 104.8, [...] 04/04/21 6:42:00 EDT, Route to Pharmacy Electronically, [facility] #[id number], 170, cm, 01/26/21 8:52:00 EDT, Height, 104.5, kg, 11/14/20 21:03:00 EDT, Dry Weight Start Date: 04/04/21 Status: OrderedPen [place], 31 G x 8 mm BD Ultra [...]
--- NOTE | 2022-05-15 12:08 | ED.EXTPRO ---
HPI - Extremity Problem General Chief complaint: Extremity Problem Stated complaint: l leg inj no work related Time Seen by Provider: 05/15/22 12:08 History of Present Illness HPI Narrative: Patient complains of left calf pain after he was playing basketball and made a move and felt a pop in the back of his left leg and then sharp pain, there were no symptoms prior to this injury, no other injury, no shortness of breath no numbness weakness or tingling no back pain no radiating Related Data Previous Rx's Medication Instructions Recorded cephalexin 500 mg capsule 500 mg PO QID #28 caps 05/28/21 naproxen 500 mg tablet 500 mg PO BID PRN pain #20 tabs 05/28/21 Allergies Allergy/AdvReac Type Severity Reaction Status Date / Time No Known Allergies Allergy Unverified 05/01/20 16:46 Review of Systems Review of Systems: Positive for left calf pain after an injury Negatives are in no headache no head injury no neck pain no back pain no radiating pain no numbness no weakness no tingling no other extremity injuries or pains PMFSH Past Medical History Source: nursing notes reviewed Medical History (Updated 05/16/22 @ 00:02 by Juan Schultz) Diabetes Social History Social History Advance Directives: No Advance Directives Information Provided: No Physical Exam Vital Signs: Vital Signs: Last Vital Signs Temp 97.8 F 05/15/22 10:42 Pulse 83 05/15/22 10:42 Resp 18 05/15/22 10:42 BP 164/88 H 05/15/22 10:42 Pulse Ox 99 05/15/22 10:42 O2 Del Method 05/15/22 10:42 BMI result Body Mass Index 36.8 General appearance comfortable no acute distress Head is normocephalic atraumatic Neck is supple and nontender Chest wall nontender Abdomen soft nontender Chest was clear to auscultation with full symmetric equal breath sounds Extremities full range of motion x4 including the left knee ankle toes, the left lower leg had posterior tenderness and some minor swelling as well as some ecchymosis Skin was intact, no edema, no redness no warmth no rash Neuro no focal motor sensory deficits Course Course Course Narrative: Patient with a clear injury to the left calf and now some pain which followed immediately upon the injury likely with a muscle strain or tear of the left calf Discharge Plan Discharge Clinical Impression: Strain of left calf muscle Patient Disposition: Home, Self-Care Additional Instructions: The pop in the back of her left leg and the sudden pain is typical of a strained or torn muscle in the left calf This usually gets better on its own in several weeks A usually becomes more tolerable with mild limping after just several days to a week Follow with orthopedist as needed Return any time if worse Use Tylenol or Motrin as needed Mild stretching when pain permits and also use of a foam roller in the back of the leg may speed healing Prescriptions: No Action cephalexin 500 mg capsule 500 mg PO QID Qty: 28 0RF naproxen 500 mg tablet 500 mg PO BID PRN (Reason: pain) Qty: 20 0RF Referrals: Palomo Melvin MD [Physician] - (Left calf muscle injury) Stand Alone Forms: Work/School Release Interventions: ED Discharge Assessment Last Done: 05/15/22 12:16 Discharge Date/Time: 05/15/22 12:16
== END 2022-05-15 12:16 | disposition home or self-care (01) ==
PROVIDERS: Emergency Provider Emergency Medicine; PCP Internal Medicine
DX: S86.912A Strain of unspecified muscle(s) and tendon(s) at lower leg level, left leg, initial encounter (principal); X50.1XXA Overexertion from prolonged static or awkward postures, initial encounter; E11.9 Type 2 diabetes mellitus without complications; Y93.67 Activity, basketball; Y92.310 Basketball court as the place of occurrence of the external cause; Y99.9 Unspecified external cause status
CPT/HCPCS: 99282

== ENCOUNTER → 2022-08-04 13:40 | Outpatient (BNVA) | payer OTHER, SELFPAY | PROVIDERS: PCP Internal Medicine; Visit Provider Physician Assistant | DX: S83.92XA Sprain of unspecified site of left knee, initial encounter (principal); S80.12XA Contusion of left lower leg, initial encounter; W22.8XXA Striking against or struck by other objects, initial encounter | CPT/HCPCS: 73564; 73590; 99204 ==

== ENCOUNTER → 2022-08-10 10:50 | Outpatient (BNVA) | payer OTHER, SELFPAY | PROVIDERS: PCP Internal Medicine; Visit Provider Physician Assistant Medical | DX: S83.92XA Sprain of unspecified site of left knee, initial encounter (principal); S80.12XA Contusion of left lower leg, initial encounter; W22.8XXA Striking against or struck by other objects, initial encounter | CPT/HCPCS: 99213 ==

== ENCOUNTER → 2024-11-28 15:06 | Outpatient (BNVA) | payer SELFPAY | PROVIDERS: PCP Internal Medicine; Visit Provider Physician Assistant Medical | DX: Z02.79 Encounter for issue of other medical certificate (principal) ==